=== PATIENT | male | born 1940 | race Caucasian/White ===

== ENCOUNTER 2017-08-25 02:39 | Inpatient (IN) | payer MEDICARE, BC ==
[~2017-08-25] VITALS: Ht 172.7 cm; Wt 86.6 kg
[2017-08-25] VITALS (16 sets, daily range): BP systolic 98–138; BP diastolic 54–86
[~2017-08-25 02:39] MED LIST: ALBU2.5V11 MC; ASPI-605 PO; BISA10SU61 RC; CLON2TAB PO; CLOP75TA2 PO; FURO-145 PO; GLIM1TAB2 PO; HYDR-3326 PO; INSU100V3 SQ; IPRA0.2S9 IH; KCL 10 MEQ PO; LEVO50TA PO; LISI-607 PO; MAGN400O6 PO; MELA3TAB42 PO; METO25TA20 PO; NA P133E RC; OMEP20CA10 PO; SERT25TA PO; TRAZ-147 PO; TYL2T PO; ZIPR60CA2 PO; ZOLP10TA2 PO
[2017-08-25] MEDS ORDERED: ALBUTEROL FS 2.5 MG/3 ML VIAL.NEB ONE (02:45)
--- NOTE | 2017-08-25 02:45 | NUR ---
PT RECIEVED FROM EMS WITH CPAP PLACED EN ROUTE WITH SOB. RT AT BEDSIDE WELL ASSESSING PATIENT. BREATH SOUNDS CRACKLE ON LEFT LOWER LUNG. VITALS STABLE OTHER THAN BREATH RATE BUT WILL BE PLACED ON BIPAP BY RT. WILL CONTINUE TO MONITOR THE PATIENT. 20G RIGHT HAND STARTED AND EMS STARTED 20G LEFT HAND.
[2017-08-25] MEDS ORDERED: ALBUTEROL FS 2.5 MG/3 ML VIAL.NEB CONTNEB ONE (03:00)
[2017-08-25] MEDS ORDERED: AZITHROMYCIN 500 MG in IV D5W 250 ML IV ONE (03:00)
[2017-08-25] MEDS ORDERED: methylPREDNISolone SOD SUCC 125 MG/2ML VIAL IV ONE (03:00)
--- NOTE | 2017-08-25 03:01 | NUR ---
RT PLACED PT ON BIPAP. EMS STARTED CPAP. HOSPITAL SETTING TO BIPAP. 26/01 FI02 40%
--- NOTE | 2017-08-25 03:02 | NUR ---
EMT AT BEDSIDE FOR EKG
--- NOTE | 2017-08-25 03:03 | NUR ---
PHLEB AT BEDSIDE FOR BLOOD DRAW
--- NOTE | 2017-08-25 03:03 | NUR ---
RADIOOLOGY TECH AT BEDSIDE FOR XRAY
[2017-08-25] MEDS ORDERED: methylPREDNISolone SOD SUCC 125 MG/2ML VIAL ONE (03:06)
[2017-08-25 03:28] LABS: ABG BASE EXCESS -4.8 mmol/L; ABG OXYGEN SATURATION 74.5 % (92.0-98.5); ABG PCO2 39.5 mmHg (35.0-45.0); ABG PH 7.335 (7.350-7.450); ABG PO2 44.2 mmHg (75.0-100.0); AaDO2 195.6 mmHg; COHb 0.5 % (0.5-1.5); MetHb 0.5 % (0.0-1.5); O2Hb 73.8 % (94.0-97.0); PEEP,BG 5 cm H2O; SITE, ABG Right Radial; VENT MODE, BG BIPAP
[2017-08-25 03:28] LABS: BASOPHILS % (AUTO) 0.5 % (0.0-2.0); EOSINOPHILS # (AUTO) 0.2 /CMM (0.0-0.7); EOSINOPHILS % (AUTO) 2.1 % (0.0-6.0); HEMATOCRIT 24 % (39-51); LYMPHOCYTES # (AUTO) 1.2 /CMM (0.8-4.8); LYMPHOCYTES % (AUTO) 15.5 % (20.0-44.0); MEAN CORPUSCULAR HEMOGLOBIN 26 PG (26.0-33.0); MEAN CORPUSCULAR HGB CONC 28 g/dl (31.0-36.0); MEAN CORPUSCULAR VOLUME 92 fL (80-96); MONOCYTES # (AUTO) 0.8 /CMM (0.1-1.30); MONOCYTES % (AUTO) 10.2 % (2.0-12.0); NEUTROPHILS # (AUTO) 5.6 /CMM (1.8-8.9); NEUTROPHILS % (AUTO) 71.7 % (43.0-81.0); PLATELET COUNT (AUTO) 152 /CMM (150-450); RDW COEFFICIENT OF VARIATION 13.8 (11.5-15.0); RED BLOOD CELL COUNT(AUTO) 2.61 MIL/uL (4.5-6.0); WHITE BLOOD COUNT (AUTO) 7.8 K/uL (4.3-11.0)
[2017-08-25] MEDS ORDERED: AZITHROMYCIN 500 MG VIAL ONE (03:36)
[2017-08-25 03:44] LABS: HEMOGLOBIN 6.8 g/dL (13.5-17.5)
[2017-08-25 03:49] LABS: ALANINE AMINOTRANSFERASE 36 U/L (12-78); ALBUMIN 3.6 g/dL (3.4-5.0); ALKALINE PHOSPHATASE 129 U/L (46-116); ASPARTATE AMINOTRANSFERASE 27 U/L (15-37); B-TYPE NATRIURETIC PEPTIDE 3942 PG/ML (0-125); BILIRUBIN,TOTAL 0.3 mg/dL (0.2-1.0); CALCIUM, SERUM 9.1 mg/dL (8.5-10.1); CARBON DIOXIDE 25 mmol/L (21-32); CHLORIDE 101 mmol/L (98-107); CREATININE 1.9 mg/dL (0.6-1.3); GLUCOSE 120 mg/dL (74-106); POTASSIUM 4.3 mmol/L (3.5-5.1); SODIUM SERUM 139 mmol/L (136-145); TOTAL PROTEIN, SERUM 7.1 g/dL (6.4-8.2); UREA NITROGEN, BLOOD 34 mg/dL (7-18)
--- NOTE | 2017-08-25 03:51 | NUR ---
ICU 251
[2017-08-25 04:07] LABS: EOSINOPHILS % (MANUAL) 3 % (0-4); LYMPHOCYTES % (MANUAL) 17 % (16-48); MONOCYTES % (MANUAL) 8 % (0-11.0); NEUTROPHILS % (MANUAL) 72 (42-76)
[2017-08-25] MEDS ORDERED: NITROGLYCERIN PACKET 1 GM PACKET ONE (04:24)
[2017-08-25] MEDS ORDERED: FUROSEMIDE 40 MG/4 ML VIAL ONE (04:24)
[2017-08-25] MEDS ORDERED: NITROGLYCERIN PACKET 1 GM PACKET TOP ONE (04:30)
[2017-08-25] MEDS ORDERED: FUROSEMIDE 40 MG/4 ML VIAL IV ONE (04:30)
[2017-08-25 04:33] LABS: INR 0.91 (0.87-1.13); PROTHROMBIN TIME 9.5 SECS (9.5-12.7)
--- NOTE | 2017-08-25 04:51 | NUR ---
GI TRIM MACHINE OPERATOR DR MCKEON PAGED
--- NOTE | 2017-08-25 05:00 | NUR ---
RN NOTES RECEIVED REPORT FROM HAMPER MAKERJERICHO MORENO
[2017-08-25] MEDS ORDERED: PANTOPRAZOLE 40 MG VIAL ONE (05:09)
--- NOTE | 2017-08-25 05:11 | NUR ---
REPORT GIVEN TO VERA IN ICU
[2017-08-25] MEDS ORDERED: PANTOPRAZOLE 80 MG in IV NS 0.9% 100 ML IV ONE (05:30)
[2017-08-25] MEDS ORDERED: PANTOPRAZOLE 80 MG in IV NS 0.9% 500 ML IV ONE (05:30)
--- NOTE | 2017-08-25 05:32 | NUR ---
PT TRANSPORTED TO ICU BED BY RN AND EMT ON BUSINESS APPLICATIONS SPECIALIST
--- NOTE | 2017-08-25 05:40 | NUR ---
RN NOTES PT BROUGHT IN FROM ER VIA GURNEY. A/O X3. ON 3L NASAL CANNULA, SATURATING WELL, WHEEZING NOTED BUT OTHERWISE NO S/S OF RESP DISTRESS. CURRENTLY SR ON THE MONITOR, HR 80'S, ALL OTHER VITALS WNL. LOWER ABDOMINAL REDNESS NOTED, OTHERWISE SKIN INTACT. PT IS CONTINENT AND ABLE TO VOID IN URINAL WITH ASSISTANCE. RIGHT HAND 20G AND LEFT HAND 20G WITH PROTONIX DRIP. BED LOW AND LOCKED, SIDERAILS UP, CALL LIGHT WITHIN REACH. WILL MONITOR
[2017-08-25] MEDS ORDERED: BISACODYL SUPP (10 MG) 10 MG/SUPP.RECT SUPP.RECT RC PRN (06:30)
[2017-08-25] MEDS ORDERED: Z GUARD REMEDY 2 OZ OINT TP PRN (06:30)
[2017-08-25] MEDS ORDERED: ONDANSETRON HCL/PF 4 MG/2 ML VIAL IVP PRN (06:30)
[2017-08-25] MEDS ORDERED: ACETAMINOPHEN 325 MG TABLET PO PRN ×2 (06:30)
[2017-08-25] MEDS ORDERED: ALBUTEROL FS 2.5 MG/3 ML VIAL.NEB NEB PRN ×2 (06:30)
[2017-08-25] MEDS ORDERED: IPRATROPIUM NEB FS 0.5 MG/2.5 ML AMPUL.NEB NEB PRN (06:30)
[2017-08-25 06:44] LABS: EOSINOPHILS % (AUTO) 0.2 % (0.0-6.0); HEMATOCRIT 34 % (39-51); HEMOGLOBIN 11.1 g/dL (13.5-17.5); LYMPHOCYTES # (AUTO) 1.4 /CMM (0.8-4.8); LYMPHOCYTES % (AUTO) 7.7 % (20.0-44.0); MEAN CORPUSCULAR HEMOGLOBIN 30 PG (26.0-33.0); MEAN CORPUSCULAR HGB CONC 33 g/dl (31.0-36.0); MEAN CORPUSCULAR VOLUME 90 fL (80-96); MONOCYTES # (AUTO) 0.2 /CMM (0.1-1.30); NEUTROPHILS # (AUTO) 15.9 /CMM (1.8-8.9); NEUTROPHILS % (AUTO) 91.1 % (43.0-81.0); PLATELET COUNT (AUTO) 242 /CMM (150-450); RDW COEFFICIENT OF VARIATION 13.8 (11.5-15.0); RED BLOOD CELL COUNT(AUTO) 3.71 MIL/uL (4.5-6.0); WHITE BLOOD COUNT (AUTO) 17.5 K/uL (4.3-11.0)
--- NOTE | 2017-08-25 06:50 | NUR ---
RN CLOSING NOTES PT REMAINS STABLE OF THE MOMENT. ALL DUE MEDS GIVEN, AM CARE PROVIDED. WILL ENDORSE DANIELA TO AM RN
[2017-08-25] MEDS ORDERED: PANTOPRAZOLE 40 MG TABLET.DR PO SCH (07:30)
[2017-08-25] MEDS: METOPROLOL TARTRATE 25 MG TABLET PO SCH ×2 (08:15→20:40)
[2017-08-25] MEDS: GLIMEPIRIDE 1 MG TABLET PO SCH ×2 (08:15→16:04)
[2017-08-25] MEDS: DOCUSATE SODIUM 100 MG CAPSULE PO SCH ×2 (08:15→16:05)
[2017-08-25] MEDS: LEVOTHYROXINE SODIUM 50 MCG TABLET PO SCH (08:17)
[2017-08-25] MEDS ORDERED: hydrALAZINE HCL 25 MG TABLET PO PRN (09:00)
[2017-08-25] MEDS ORDERED: LISINOPRIL (5MG) 5 MG TABLET PO SCH (09:00)
[2017-08-25] MEDS ORDERED: FUROSEMIDE 20 MG/2 ML VIAL IV ONE (09:00)
[2017-08-25] MEDS: SERTRALINE HCL 25 MG TABLET PO SCH (09:00)
[2017-08-25] MEDS: ZIPRASIDONE 20 MG CAPSULE PO SCH ×2 (09:00→16:05)
[2017-08-25] MEDS: clonazePAM 1 MG TABLET PO SCH ×2 (09:00→16:05)
[2017-08-25] MEDS ORDERED: PIPERACILLIN /TAZOBACTAM 4.5 G in IV D5W 50 ML IV SCH (09:00)
[2017-08-25] MEDS ORDERED: PIPERACILLIN /TAZOBACTAM 2.25 G in IV D5W 50 ML IV SCH (09:00)
[2017-08-25 09:04] LABS: ALBUMIN 3.6 g/dL (3.4-5.0); BILIRUBIN,DIRECT 0.1 mg/dL (0.0-0.2); BILIRUBIN,TOTAL 0.4 mg/dL (0.2-1.0)
[2017-08-25] MEDS: methylPREDNISolone SOD SUCC 125 MG/2ML VIAL IV SCH ×3 (09:50→16:05)
[2017-08-25 10:00] LABS: THYROID STIMULATING HORMONE 3.969 uIU/mL (0.358-3.74)
[2017-08-25 10:01] LABS: MAGNESIUM 2.3 mg/dL (1.8-2.4); PHOSPHORUS 4.4 mg/dL (2.5-4.9); THYROID STIMULATING HORMONE 3.969 uIU/mL (0.358-3.74)
[2017-08-25] MEDS ORDERED: POTASSIUM CHLORIDE 20 MEQ TAB.PRT.SR PO ONE (10:30)
[2017-08-25] MEDS: LISINOPRIL (10MG) 10 MG TABLET PO SCH (11:11)
[2017-08-25] MEDS: FUROSEMIDE 40 MG/4 ML VIAL IV SCH ×3 (11:11→18:04)
--- NOTE | 2017-08-25 11:28 | NUR ---
LIFT TEAM TECHNICIAN NOTE 0720: Received patient awake, A/Ox4. On 3LPM of O2 via NC tolerated well. No respiratory distress noted. No c/o any discomfort at this time. Able to use urinals with assistance. 2PIVs intact. 0800: Able to tolerate diet. Not3ed with 420mL of clear yellow urine. 0830: Held Geodon, Zoloft and Klonopin for episode of respiratory failure, will keep patient awake as possible for now. Patient aware for skipping dose and agreed. Placed patient on condom cath for having diuretics, patient agreed. Encouraged to minimize taking PO fluids. 0845: S/E by Dr. Powell, with order to increase Lisinopril and Lasix, and may transfer to Tele. Made CN aware. 0930: Spoke with Dr. Marie via phone and given update about the patient. Repeat H/H 11.1 and 34, no active bleeding, said to get consent for EGD for tomorrow and NPO post midnight and also said to continue holding anticoags. Made patient aware for the EGD order and signed consent. 1000: S/E by Dr. Hickman, with order for repeat CXR in am. 1120: No any significant changes noted at this time. Kept clean, warm and dry. Needs attended.
[2017-08-25] MEDS: ALBUTEROL FS 2.5 MG/3 ML VIAL.NEB NEB SCH ×4 (11:30→23:36)
[2017-08-25] MEDS: IPRATROPIUM NEB FS 0.5 MG/2.5 ML AMPUL.NEB NEB SCH ×4 (11:30→23:36)
[2017-08-25 11:57] LABS: CALCIUM, SERUM 8.7 mg/dL (8.5-10.1); CARBON DIOXIDE 25 mmol/L (21-32); CHLORIDE 99 mmol/L (98-107); CREATININE 1.8 mg/dL (0.6-1.3); GLUCOSE 204 mg/dL (74-106); POTASSIUM 3.9 mmol/L (3.5-5.1); SODIUM SERUM 137 mmol/L (136-145); UREA NITROGEN, BLOOD 31 mg/dL (7-18)
[2017-08-25 12:06] LABS: TROPONIN I 0.204 ng/mL (0.00-0.056)
[2017-08-25 12:10] LABS: BASOPHILS % (AUTO) 0.2 % (0.0-2.0); HEMATOCRIT 31 % (39-51); HEMOGLOBIN 10.4 g/dL (13.5-17.5); LYMPHOCYTES # (AUTO) 1.4 /CMM (0.8-4.8); LYMPHOCYTES % (AUTO) 15.6 % (20.0-44.0); MEAN CORPUSCULAR HEMOGLOBIN 30 PG (26.0-33.0); MEAN CORPUSCULAR HGB CONC 34 g/dl (31.0-36.0); MEAN CORPUSCULAR VOLUME 89 fL (80-96); MONOCYTES # (AUTO) 0.2 /CMM (0.1-1.30); MONOCYTES % (AUTO) 2.4 % (2.0-12.0); NEUTROPHILS # (AUTO) 7.3 /CMM (1.8-8.9); NEUTROPHILS % (AUTO) 81.8 % (43.0-81.0); PLATELET COUNT (AUTO) 251 /CMM (150-450); RDW COEFFICIENT OF VARIATION 13.7 (11.5-15.0); RED BLOOD CELL COUNT(AUTO) 3.44 MIL/uL (4.5-6.0)
[2017-08-25] MEDS: PIPERACILLIN /TAZOBACTAM 2.25 G in IV D5W 50 ML IV SCH ×3 (12:22→23:28)
[2017-08-25] MEDS ORDERED: IBUPROFEN 400 MG TABLET PO PRN (15:00)
--- NOTE | 2017-08-25 18:20 | NUR ---
PATIENT SERVICE REPRESENTATIVE NOTE No any significant changes. Able to void on the urinals, unfortunately, he was not successful on using on the last voiding, noted with wet diapers. with large amount of urine. Encouraged to call if needed help on voiding. Tried condom cath but dislodged x3 and refused Slade cath. Continue Lasix and Solumedrol. Remained on 2LPM of O2 via NC tolerated well. Kept clean, warm and dry. Needs attended. Able to tolerate Geodon and Zoloft for pm dose. PIVs intact. Will endorse.
--- NOTE | 2017-08-25 19:20 | NUR ---
ANALYTICS LEAD OPENING NOTES RECEIVED PATIENT AND REPORT FROM DAY SHIFT. PATIENT IS IN BED WITH HOB ELEVATED AT 30 DEGREES. SLEEPING BUT IS EASILY AROUSED WITH VERBAL STIMULUS. ALERT AND ORIENTED X 3. ABLE TO EXPRESS NEEDS. ON OXYGEN VIA NC RUNNING AT 2LPM. CALL LIGHT WITHIN REACH.
[2017-08-25] MEDS: HYDROCODONE/APAP 5/325MG 1 EACH TABLET PO PRN (20:41)
[2017-08-25] MEDS: PANTOPRAZOLE 40 MG VIAL IV SCH (20:42)
[2017-08-25] MEDS: TRAZODONE 50 MG TABLET PO SCH (21:11)
[2017-08-25] MEDS ORDERED: ZOLPIDEM TARTRATE 10 MG TABLET PO PRN (22:00)
[2017-08-25 23:37] LABS: APPEARANCE,URINE CLEAR (CLEAR); BILIRUBIN,URINE NEGATIVE (NEGATIVE); BLOOD, URINE NEGATIVE Ery/uL (NEGATIVE); COLOR,URINE YELLOW (YELLOW); KETONES,URINE NEGATIVE (NEGATIVE); LEUKOCYTE ESTERASE ,URINE NEGATIVE (NEGATIVE); NITRITE, URINE NEGATIVE (NEGATIVE); PROTEIN,URINE NEGATIVE (NEGATIVE); UGLUCOSE NEGATIVE (NEGATIVE); UROBILINOGEN,URINE 0.2 EU/dL (0.2)
[2017-08-25 23:40] LABS: CREATININE, URINE 16.2 MG/DL (30.0-125.0); URINE SODIUM, RANDOM 74 mmol/l (40-220)
[2017-08-25 23:41] LABS: URINE TOTAL PROTEIN < 6.0 mg/dL (0-11.9)
[2017-08-26] VITALS (7 sets, daily range): BP systolic 93–141; BP diastolic 40–95
[2017-08-26 00:42] LABS: EOSINOPHIL,URINE None Seen
[2017-08-26] MEDS: IPRATROPIUM NEB FS 0.5 MG/2.5 ML AMPUL.NEB NEB SCH ×6 (02:55→23:47)
[2017-08-26] MEDS: ALBUTEROL FS 2.5 MG/3 ML VIAL.NEB NEB SCH ×6 (02:55→23:47)
[2017-08-26] MEDS: PIPERACILLIN /TAZOBACTAM 2.25 G in IV D5W 50 ML IV SCH ×2 (05:19→12:56)
[2017-08-26 06:54] LABS: BASOPHILS % (AUTO) 0.1 % (0.0-2.0); HEMATOCRIT 30 % (39-51); HEMOGLOBIN 9.7 g/dL (13.5-17.5); LYMPHOCYTES # (AUTO) 1.7 /CMM (0.8-4.8); LYMPHOCYTES % (AUTO) 10.4 % (20.0-44.0); MEAN CORPUSCULAR HEMOGLOBIN 30 PG (26.0-33.0); MEAN CORPUSCULAR HGB CONC 33 g/dl (31.0-36.0); MEAN CORPUSCULAR VOLUME 91 fL (80-96); MONOCYTES % (AUTO) 12.4 % (2.0-12.0); NEUTROPHILS # (AUTO) 12.5 /CMM (1.8-8.9); NEUTROPHILS % (AUTO) 77.1 % (43.0-81.0); PLATELET COUNT (AUTO) 238 /CMM (150-450); RDW COEFFICIENT OF VARIATION 13.8 (11.5-15.0); RED BLOOD CELL COUNT(AUTO) 3.29 MIL/uL (4.5-6.0); WHITE BLOOD COUNT (AUTO) 16.2 K/uL (4.3-11.0)
[2017-08-26 06:57] LABS: ALANINE AMINOTRANSFERASE 25 U/L (12-78); ALBUMIN 2.9 g/dL (3.4-5.0); ALKALINE PHOSPHATASE 86 U/L (46-116); ASPARTATE AMINOTRANSFERASE 17 U/L (15-37); BILIRUBIN,TOTAL 0.2 mg/dL (0.2-1.0); CALCIUM, SERUM 8.4 mg/dL (8.5-10.1); CARBON DIOXIDE 27 mmol/L (21-32); CHLORIDE 100 mmol/L (98-107); CREATININE 1.8 mg/dL (0.6-1.3); GLUCOSE 153 mg/dL (74-106); MAGNESIUM 2.1 mg/dL (1.8-2.4); PHOSPHORUS 4.7 mg/dL (2.5-4.9); POTASSIUM 3.6 mmol/L (3.5-5.1); SODIUM SERUM 137 mmol/L (136-145); TOTAL PROTEIN, SERUM 5.9 g/dL (6.4-8.2); TROPONIN I 0.159 ng/mL (0.00-0.056); UREA NITROGEN, BLOOD 41 mg/dL (7-18)
[2017-08-26 07:36] LABS: CREATINE KINASE, TOTAL 491 U/L (39-308)
[2017-08-26] MEDS ORDERED: ANESTHESIA TRAY IN PYXIS 1 EA TRAY MC ONE (07:46)
[2017-08-26 08:05] LABS: CREATINE KINASE MB 1.8 ng/mL (0-3.6)
--- NOTE | 2017-08-26 08:30 | NUR ---
RN NOTE PT CAME BACK FROM OR FROM EGD, TOLERATED WELL, DENIES PAIN, CO HUNGER, NO NAUSEA, NO SOB. ON NC 2 2 L/MIN. WILL MONITOR PT CLOSELY. CALL LIGHT WITHIN REACH.
[2017-08-26] MEDS: methylPREDNISolone SOD SUCC 125 MG/2ML VIAL IV SCH (08:51)
[2017-08-26] MEDS: PANTOPRAZOLE 40 MG VIAL IV SCH (08:51)
[2017-08-26] MEDS: GLIMEPIRIDE 1 MG TABLET PO SCH ×2 (08:51→17:22)
[2017-08-26] MEDS: LEVOTHYROXINE SODIUM 50 MCG TABLET PO SCH (08:51)
[2017-08-26] MEDS: SERTRALINE HCL 25 MG TABLET PO SCH (08:51)
[2017-08-26] MEDS: DOCUSATE SODIUM 100 MG CAPSULE PO SCH ×2 (08:51→17:20)
[2017-08-26] MEDS: clonazePAM 1 MG TABLET PO SCH ×2 (08:54→17:22)
[2017-08-26] MEDS: LISINOPRIL (10MG) 10 MG TABLET PO SCH (09:00)
[2017-08-26] MEDS: METOPROLOL TARTRATE 25 MG TABLET PO SCH ×2 (09:00→21:49)
[2017-08-26] MEDS: ZIPRASIDONE 20 MG CAPSULE PO SCH ×2 (10:00→17:22)
[2017-08-26] MEDS: METOCLOPRAMIDE HCL 10 MG TABLET PO SCH ×3 (12:56→23:39)
[2017-08-26] MEDS: FUROSEMIDE 100 MG/10 ML VIAL IV SCH ×3 (12:56→21:49)
[2017-08-26] MEDS: HYDROCODONE/APAP 5/325MG 1 EACH TABLET PO PRN (14:04)
[2017-08-26] MEDS ORDERED: POLYETHYLENE GLYCOL 3350 17 GM POWD.PACK PO PRN (14:30)
[2017-08-26] MEDS: POLYETHYLENE GLYCOL 3350 17 GM POWD.PACK PO SCH (15:18)
[2017-08-26] MEDS: LEVOFLOXACIN (500MG) 500 MG TABLET PO SCH (15:43)
--- NOTE | 2017-08-26 19:30 | NUR ---
CELL ATTENDANT INITIAL NOTE PT RECEIVED SLEEPING IN BED BUT EASILY AROUSABLE. A/O X3 AND ABLE TO MAKE NEEDS KNOWN. ON 2L OF O2 AND SATURATING WELL. BREATHING REGULAR AND UNLABORED. TELE- SINUS RHYTHM WITH OCCASIONAL PVC/PAC. IV L & R HAND #20 CLEAN, DRY, PATENT AND FLUSHING WELL. INFORMED PT TO REMAIN NPO AFTER MIDNIGHT FOR PROCEDURE IN THE MORNING. PT VERBALIZED UNDERSTANDING. CALL LIGHT WITHIN REACH. WILL CONTINUE TO MONITOR.
[2017-08-26] MEDS: SENNOSIDES 8.6 MG TABLET PO SCH (21:49)
[2017-08-26] MEDS: TRAZODONE 50 MG TABLET PO SCH (23:39)
[2017-08-27] VITALS: BP 108/70
[2017-08-27] MEDS: ALBUTEROL FS 2.5 MG/3 ML VIAL.NEB NEB SCH ×6 (03:30→23:30)
[2017-08-27] MEDS: IPRATROPIUM NEB FS 0.5 MG/2.5 ML AMPUL.NEB NEB SCH ×6 (03:30→23:30)
[2017-08-27 04:00] VITALS: BP 110/64
[2017-08-27] MEDS: METOCLOPRAMIDE HCL 10 MG TABLET PO SCH ×3 (05:36→17:00)
--- NOTE | 2017-08-27 06:58 | NUR ---
SQL DATA ANALYST CLOSING NOTE PT REMAINED STABLE DURING SHIFT. NO ACUTE DISTRESS NOTED. ALL NEEDS ATTENDED TO PROMPTLY. KEPT CLEAN AND DRY. NPO STATUS MAINTAINED FOR PROCEDURE THIS MORNING. ALL SAFETY MEASURES IN PLACE. CALL LIGHT WITHIN REACH. WILL ENDORSE TO NEXT SHIFT FOR CONTINUITY OF CARE.
[2017-08-27 07:53] LABS: BASOPHILS % (AUTO) 0.1 % (0.0-2.0); EOSINOPHILS # (AUTO) 0.1 /CMM (0.0-0.7); EOSINOPHILS % (AUTO) 0.9 % (0.0-6.0); HEMATOCRIT 31 % (39-51); HEMOGLOBIN 10.4 g/dL (13.5-17.5); LYMPHOCYTES # (AUTO) 2.8 /CMM (0.8-4.8); LYMPHOCYTES % (AUTO) 17.1 % (20.0-44.0); MEAN CORPUSCULAR HEMOGLOBIN 31 PG (26.0-33.0); MEAN CORPUSCULAR HGB CONC 34 g/dl (31.0-36.0); MEAN CORPUSCULAR VOLUME 91 fL (80-96); MONOCYTES # (AUTO) 2.6 /CMM (0.1-1.30); MONOCYTES % (AUTO) 16.1 % (2.0-12.0); NEUTROPHILS # (AUTO) 10.6 /CMM (1.8-8.9); NEUTROPHILS % (AUTO) 65.8 % (43.0-81.0); PLATELET COUNT (AUTO) 248 /CMM (150-450); RDW COEFFICIENT OF VARIATION 14.2 (11.5-15.0); WHITE BLOOD COUNT (AUTO) 16.1 K/uL (4.3-11.0)
[2017-08-27 08:00] VITALS: BP 122/61
[2017-08-27] MEDS ORDERED: REGADENOSON 0.4 MG/5 ML DISP.SYRIN IVP ONE (08:00)
--- NOTE | 2017-08-27 08:00 | NUR ---
teletype telegrapher note patient in bed , resting comfortably in bed , all needs attended on 2l nc on npo at This time for stress test , on tele monitor sr 85 , lt hand and rt hand hl intact bed in lowest and locked position , not in distress, will cont to monitor closely
[2017-08-27 08:12] LABS: CALCIUM, SERUM 8.4 mg/dL (8.5-10.1); CARBON DIOXIDE 30 mmol/L (21-32); CHLORIDE 100 mmol/L (98-107); CREATININE 1.9 mg/dL (0.6-1.3); GLUCOSE 74 mg/dL (74-106); MAGNESIUM 2.5 mg/dL (1.8-2.4); PHOSPHORUS 5.2 mg/dL (2.5-4.9); POTASSIUM 3.5 mmol/L (3.5-5.1); SODIUM SERUM 136 mmol/L (136-145); UREA NITROGEN, BLOOD 54 mg/dL (7-18)
--- NOTE | 2017-08-27 08:15 | NUR ---
INSTALLATION DRAFTER NOTE TAKEN TO STRESS TEST ORDERED
[2017-08-27] MEDS ORDERED: methylPREDNISolone SOD SUCC 125 MG/2ML VIAL IV SCH (09:00)
[2017-08-27 09:24] LABS: LYMPHOCYTES % (MANUAL) 18 % (16-48); MONOCYTES % (MANUAL) 14 % (0-11.0); NEUTROPHILS % (MANUAL) 68 (42-76)
[2017-08-27] MEDS: LISINOPRIL (5MG) 5 MG TABLET PO SCH (10:17)
[2017-08-27] MEDS: METOPROLOL TARTRATE 25 MG TABLET PO SCH ×2 (10:19→21:00)
[2017-08-27] MEDS: predniSONE 20 MG TABLET PO SCH (10:20)
[2017-08-27] MEDS: PANTOPRAZOLE 40 MG TABLET.DR PO SCH (10:20)
[2017-08-27] MEDS: DOCUSATE SODIUM 100 MG CAPSULE PO SCH ×2 (10:21→16:54)
[2017-08-27] MEDS: SERTRALINE HCL 25 MG TABLET PO SCH (10:21)
[2017-08-27] MEDS: ZIPRASIDONE 20 MG CAPSULE PO SCH ×2 (10:22→16:58)
[2017-08-27] MEDS: ASPIRIN 81 MG TAB.CHEW PO SCH (10:22)
[2017-08-27] MEDS: clonazePAM 1 MG TABLET PO SCH ×2 (10:23→16:59)
[2017-08-27] MEDS: GLIMEPIRIDE 1 MG TABLET PO SCH ×2 (10:23→16:54)
[2017-08-27] MEDS: POLYETHYLENE GLYCOL 3350 17 GM POWD.PACK PO SCH (10:24)
[2017-08-27] MEDS: LEVOTHYROXINE SODIUM 50 MCG TABLET PO SCH (10:26)
[2017-08-27 12:00] VITALS: BP 110/71
[2017-08-27] MEDS: POTASSIUM CHLORIDE 20 MEQ TAB.PRT.SR PO SCH ×2 (12:48→14:52)
[2017-08-27] MEDS: FUROSEMIDE 100 MG/10 ML VIAL IV SCH ×3 (12:48→18:51)
--- NOTE | 2017-08-27 13:28 | NUR ---
ARTIFICIAL FLOWERS SUPERVISOR NOTE UP ON KIRT ,TOLERATED WELL,WILL CONT TO MONITOR CLOSELY
[2017-08-27 13:46] LABS: PTH, INTACT 73 pg/mL (15-65)
[2017-08-27 13:48] LABS: ABG BASE EXCESS 0.1 mmol/L; ABG OXYGEN SATURATION 91.5 % (92.0-98.5); ABG PCO2 39.1 mmHg (35.0-45.0); ABG PH 7.416 (7.350-7.450); ABG PO2 65.8 mmHg (75.0-100.0); AaDO2 37.1 mmHg; COHb 0.3 % (0.5-1.5); MetHb 0.8 % (0.0-1.5); O2Hb 90.5 % (94.0-97.0); SITE, ABG Right Radial; VENT MODE, BG ROOM AIR
--- NOTE | 2017-08-27 14:42 | NUR ---
EDITORIAL ASSISTANT NOTE ABG RESULT REPORTED TO DR GAMBOA NO NEW ORDER GIVEN
--- NOTE | 2017-08-27 14:59 | NUR ---
TEAM SUPERVISOR NOTE AMBULATE IN HALLWAY WITH ASSISTANCE USING A WALKER ABLE TO SIT IN CHAIR , WILL MONITOR CLOSELY
--- NOTE | 2017-08-27 15:32 | NUR ---
KIKI ECHAVARRIA NOTE DR LLANES AT BEDSIDE AWARE THAT PATIENT FEEL VERY TIRED AFTER STRESS TEST , [place] [facility] AWARE THAT PATIENT WAS AMBULATED EARLIER WITH ASSISTANCE Addendum: 08/27/17 at 1559 by YAIR CARDENAS RN PER DR SHRADDHA BEAUCHAMP PSYCH EVAL PATENT TAKING SEVERE PSYCH MEDS ,NO PSYCH HISTO
[2017-08-27 16:00] VITALS: BP 120/64
[2017-08-27] MEDS ORDERED: FLU VACC QS 2017-18(36MOS+)/PF 0.5 ML DISP.SYRIN IM ONE (16:00)
--- NOTE | 2017-08-27 18:56 | NUR ---
MS RN NOTE ABLE TO FEED SELF , ALL NEEDS ATTENDED ,NOT IN ACUTE DISTRESS ,NO SOB NOTED, WILL CONT TO MONITOR CLOSELY
[2017-08-27 20:00] VITALS: BP 98/56
--- NOTE | 2017-08-27 20:04 | NUR ---
MS RN INITIAL NOTE PT RECEIVED SLEEPING IN BED BUT EASILY AROUSABLE. A/O X3 AND ABLE TO MAKE NEEDS KNOWN. ON 2L OF O2 AND SATURATING WELL. BREATHING REGULAR AND UNLABORED. IV L & R HAND #20 CLEAN, DRY, PATENT AND FLUSHING WELL. S/P STRESS TEST, APPEARS COMFORTABLE. ALL NEEDS MET. CALL LIGHT WITHIN REACH. WILL CONTINUE TO MONITOR.
[2017-08-27] MEDS: SENNOSIDES 8.6 MG TABLET PO SCH (22:00)
[2017-08-27] MEDS: TRAZODONE 50 MG TABLET PO SCH (22:01)
[2017-08-28] MEDS: METOCLOPRAMIDE HCL 10 MG TABLET PO SCH ×4 (00:22→16:29)
[2017-08-28] MEDS: IPRATROPIUM NEB FS 0.5 MG/2.5 ML AMPUL.NEB NEB SCH ×5 (03:30→19:43)
[2017-08-28] MEDS: ALBUTEROL FS 2.5 MG/3 ML VIAL.NEB NEB SCH ×5 (03:30→19:43)
[2017-08-28 04:00] VITALS: BP_SYST 110; BP_SYST 115; BP_DIAS 60; BP_DIAS 64
[2017-08-28 06:04] LABS: *SPE A/G RATIO 1.3 (0.7-1.7); *SPE ALPHA-1-GLOBULIN 0.2 g/dL (0.0-0.4); *SPE ALPHA-2-GLOBULIN 0.8 g/dL (0.4-1.0); *SPE BETA GLOBULIN 0.8 g/dL (0.7-1.3); *SPE GLOBULIN, TOTAL 2.3 g/dL (2.2-3.9); *SPE M-SPIKE Not Observed g/dL (Not Observed); *SPEGAMMA GLOBULIN 0.5 g/dL (0.4-1.8)
--- NOTE | 2017-08-28 06:13 | NUR ---
MS RN CLOSING NOTE PT ENDORSED SLEEPING IN BED BUT EASILY AROUSABLE. A/O X3 AND ABLE TO MAKE NEEDS KNOWN. ON 2L OF O2 AND SATURATING WELL. BREATHING REGULAR AND UNLABORED. IV L & R HAND #20 CLEAN, DRY, PATENT AND FLUSHING WELL. S/P STRESS TEST, WITH EF 29%, XR CHEST DONE IN AM, WILL ENDORSE TO AM SHIFT TO F/U. APPEARS COMFORTABLE. ALL NEEDS MET. CALL LIGHT WITHIN REACH. WILL CONTINUE TO MONITOR.
[2017-08-28 07:44] LABS: BASOPHILS % (AUTO) 0.2 % (0.0-2.0); EOSINOPHILS # (AUTO) 0.3 /CMM (0.0-0.7); EOSINOPHILS % (AUTO) 2.3 % (0.0-6.0); HEMATOCRIT 33 % (39-51); LYMPHOCYTES # (AUTO) 2.5 /CMM (0.8-4.8); LYMPHOCYTES % (AUTO) 17.3 % (20.0-44.0); MEAN CORPUSCULAR HEMOGLOBIN 31 PG (26.0-33.0); MEAN CORPUSCULAR HGB CONC 34 g/dl (31.0-36.0); MEAN CORPUSCULAR VOLUME 91 fL (80-96); MONOCYTES # (AUTO) 2.3 /CMM (0.1-1.30); MONOCYTES % (AUTO) 15.8 % (2.0-12.0); NEUTROPHILS # (AUTO) 9.3 /CMM (1.8-8.9); NEUTROPHILS % (AUTO) 64.4 % (43.0-81.0); PLATELET COUNT (AUTO) 256 /CMM (150-450); RDW COEFFICIENT OF VARIATION 14.2 (11.5-15.0); RED BLOOD CELL COUNT(AUTO) 3.59 MIL/uL (4.5-6.0); WHITE BLOOD COUNT (AUTO) 14.4 K/uL (4.3-11.0)
[2017-08-28 08:00] VITALS: BP 127/57
[2017-08-28 08:12] LABS: ALANINE AMINOTRANSFERASE 27 U/L (12-78); ALKALINE PHOSPHATASE 95 U/L (46-116); ASPARTATE AMINOTRANSFERASE 13 U/L (15-37); BILIRUBIN,TOTAL 0.2 mg/dL (0.2-1.0); CALCIUM, SERUM 8.5 mg/dL (8.5-10.1); CARBON DIOXIDE 30 mmol/L (21-32); CHLORIDE 101 mmol/L (98-107); CREATININE 1.6 mg/dL (0.6-1.3); GLUCOSE 92 mg/dL (74-106); MAGNESIUM 2.5 mg/dL (1.8-2.4); PHOSPHORUS 3.9 mg/dL (2.5-4.9); POTASSIUM 3.7 mmol/L (3.5-5.1); SODIUM SERUM 138 mmol/L (136-145); TOTAL PROTEIN, SERUM 6.2 g/dL (6.4-8.2); UREA NITROGEN, BLOOD 52 mg/dL (7-18)
[2017-08-28] MEDS: LISINOPRIL (5MG) 5 MG TABLET PO SCH (08:40)
[2017-08-28] MEDS: DOCUSATE SODIUM 100 MG CAPSULE PO SCH ×2 (08:40→16:29)
[2017-08-28] MEDS: POLYETHYLENE GLYCOL 3350 17 GM POWD.PACK PO SCH (08:41)
[2017-08-28] MEDS: SERTRALINE HCL 25 MG TABLET PO SCH (08:41)
[2017-08-28] MEDS: clonazePAM 1 MG TABLET PO SCH (08:41)
[2017-08-28] MEDS: METOPROLOL TARTRATE 25 MG TABLET PO SCH (08:41)
[2017-08-28] MEDS: ASPIRIN 81 MG TAB.CHEW PO SCH (08:41)
[2017-08-28] MEDS: LEVOTHYROXINE SODIUM 50 MCG TABLET PO SCH (08:41)
[2017-08-28] MEDS: PANTOPRAZOLE 40 MG TABLET.DR PO SCH (08:41)
[2017-08-28] MEDS: predniSONE 20 MG TABLET PO SCH (08:41)
[2017-08-28] MEDS: ZIPRASIDONE 20 MG CAPSULE PO SCH ×2 (08:41→16:29)
[2017-08-28] MEDS: GLIMEPIRIDE 1 MG TABLET PO SCH ×2 (08:42→16:29)
[2017-08-28] MEDS: POTASSIUM CHLORIDE 20 MEQ TAB.PRT.SR PO SCH ×3 (10:26→12:51)
[2017-08-28] MEDS: FUROSEMIDE 40 MG/4 ML VIAL IV SCH ×3 (10:27→16:29)
--- NOTE | 2017-08-28 10:30 | NUR ---
RN ANIL PATIENT ROOM AIR O2 SAT NOTED TO BE 95% - 97%. NO ACUTE DISTRESS. PATIENT IS ASLEEP AT THIS TIME. PATIENT REFUSED TO GET OUT OF BED AT THIS TIME. PATIENT SAID HE IS TOO WEAK TO GET OUT OF BED AT THIS TIME. WILL ATTEMPT LATER.
[2017-08-28 12:00] VITALS: BP 127/57
[2017-08-28] MEDS: LEVOFLOXACIN (500MG) 500 MG TABLET PO SCH (15:42)
[2017-08-28] MEDS ORDERED: clonazePAM 1 MG TABLET PO PRN (17:00)
--- NOTE | 2017-08-28 20:00 | NUR ---
ms rn notes received pts on bed awake alert and verbally responsive able to make needs known.v/s stable afebrile, no sob no distress no c/o of pain at this time , pts for discharged today to [facility] [place], report given by eduin hinton to eduin pratt in [facility], all needs attended too , discharged medication instruction and teachings given to pts with understanding .awaiting for transportation.all needs attended to call light within reach , kept pts clean dry and comfortable.care rendered .
--- NOTE | 2017-08-28 21:05 | NUR ---
ms rn notes ambulnz transport came , v/s bp 120/70 pr -68 rr=16 t=97.7 o2 sat =100% pts in stable condition ,all belongings given to pts (wallet and 2 keys,clothing)pts looking for his shoes but its not on the list, explain to pts verbalized understanding,charged nurse miah made aware.report given to the ambulanz crew, hl removed .pts left [facility] at 830pm via gurney in stable condition.
[2017-08-29] MEDS ORDERED: clonazePAM 1 MG TABLET PO SCH (09:00)
== END 2017-08-28 20:30 | DRG 280 ==
LOC: ER 02:40 → ICU 04:53 → TELE1 18:38 → MEDSG1 08-27 12:18
PROVIDERS: ADMIT Internal Medicine; ATTEND Internal Medicine
PROC: 0DB68ZX Excision of Stomach, Via Natural or Artificial Opening Endoscopic, Diagnostic (ICD-10-PCS; principal; 2017-08-26 08:01)
DX: I13.0 Hypertensive heart and chronic kidney disease with heart failure and stage 1 through stage 4 chronic kidney disease, or unspecified chronic kidney disease (principal); I50.33 Acute on chronic diastolic (congestive) heart failure; I21.A1 Myocardial infarction type 2; J96.01 Acute respiratory failure with hypoxia; N17.0 Acute kidney failure with tubular necrosis; E44.0 Moderate protein-calorie malnutrition; E87.2 Acidosis; K31.84 Gastroparesis; J18.9 Pneumonia, unspecified organism; E11.43 Type 2 diabetes mellitus with diabetic autonomic (poly)neuropathy; E11.22 Type 2 diabetes mellitus with diabetic chronic kidney disease; M62.82 Rhabdomyolysis; J44.0 Chronic obstructive pulmonary disease with (acute) lower respiratory infection; J44.1 Chronic obstructive pulmonary disease with (acute) exacerbation; K92.2 Gastrointestinal hemorrhage, unspecified; J98.11 Atelectasis; K29.70 Gastritis, unspecified, without bleeding; N18.3 Chronic kidney disease, stage 3 (moderate); E88.09 Other disorders of plasma-protein metabolism, not elsewhere classified; D63.8 Anemia in other chronic diseases classified elsewhere; E03.9 Hypothyroidism, unspecified; E66.9 Obesity, unspecified; E78.5 Hyperlipidemia, unspecified; E87.6 Hypokalemia; I25.10 Atherosclerotic heart disease of native coronary artery without angina pectoris; Z79.899 Other long term (current) drug therapy; Z98.61 Coronary angioplasty status; K21.9 Gastro-esophageal reflux disease without esophagitis; Z79.4 Long term (current) use of insulin; J20.9 Acute bronchitis, unspecified; I34.0 Nonrheumatic mitral (valve) insufficiency; G47.33 Obstructive sleep apnea (adult) (pediatric); Z68.29 Body mass index [BMI] 29.0-29.9, adult; Z88.2 Allergy status to sulfonamides; F41.0 Panic disorder [episodic paroxysmal anxiety]; F44.9 Dissociative and conversion disorder, unspecified; D50.0 Iron deficiency anemia secondary to blood loss (chronic); I42.9 Cardiomyopathy, unspecified
CPT/HCPCS: 36415; 36600; 71010-TC; 76770-TC; 80048-TC; 80053-TC; 80076-TC; 81000-TC; 82272-TC; 82306; 82550-TC; 82553-TC; 82570-TC; 82803-TC; 82962-TC; 83540-TC; 83605-TC; 83735-TC; 83880; 83970; 84100-TC; 84155; 84155-TC; 84165; 84300-TC; 84439-TC; 84443-TC; 84484-TC; 85025-TC; 85378-TC; 85730-TC; 86850-TC; 86921-TC; 87040-TC; 87081-TC; 87400; 88305-TC; 88313-TC; 88342; 93307-TC; 93970-TC; 94799-TC; A4349; A4565; A4606; A9502; C9113; J0456; J1940; J2001; J2543; J2704; J2785; J2930; J7030; J7060; J8597; Q2036; Z7610

== ENCOUNTER 2017-10-19 12:08 | Inpatient (IN) | payer MEDICARE, BC ==
[~2017-10-19] VITALS: Ht 170.2 cm; Wt 84.4 kg
[2017-10-19] VITALS (13 sets, daily range): BP systolic 94–142; BP diastolic 54–88
[~2017-10-19 12:08] MED LIST changes: -ALBU2.5V11 MC; +ALBU2.5V11 NEB; +CLOP75TA15 PO; -CLOP75TA2 PO; -HYDR-3326 PO; +HYDR-3974 PO; -MELA3TAB42 PO; +MELA3TAB70 PO
[2017-10-19] MEDS ORDERED: FUROSEMIDE 20 MG/2 ML VIAL ONE (12:20)
--- NOTE | 2017-10-19 12:20 | NUR ---
Tammy from SNF due SOPB. Patient received awake and laert, appears in mild distress. Patient was placed on o2 via non rebreather, sating 98%. Skin is warm to touch and non diaphporetic. Patient is afebrile. vss. Iv accessed to left hand noted/
[2017-10-19 12:28] LABS: BASOPHILS # (AUTO) 0.2 /CMM (0.0-0.2); BASOPHILS % (AUTO) 1.6 % (0.0-2.0); EOSINOPHILS % (AUTO) 0.2 % (0.0-6.0); HEMATOCRIT 32 % (39-51); HEMOGLOBIN 10.8 g/dL (13.5-17.5); LYMPHOCYTES % (AUTO) 6.9 % (20.0-44.0); MEAN CORPUSCULAR HEMOGLOBIN 29 PG (26.0-33.0); MEAN CORPUSCULAR HGB CONC 34 g/dl (31.0-36.0); MEAN CORPUSCULAR VOLUME 85 fL (80-96); MONOCYTES # (AUTO) 0.2 /CMM (0.1-1.30); MONOCYTES % (AUTO) 1.6 % (2.0-12.0); NEUTROPHILS # (AUTO) 12.9 /CMM (1.8-8.9); NEUTROPHILS % (AUTO) 89.7 % (43.0-81.0); PLATELET COUNT (AUTO) 217 /CMM (150-450); RDW COEFFICIENT OF VARIATION 13.7 (11.5-15.0); RED BLOOD CELL COUNT(AUTO) 3.76 MIL/uL (4.5-6.0); WHITE BLOOD COUNT (AUTO) 14.3 K/uL (4.3-11.0)
--- NOTE | 2017-10-19 12:29 | NUR ---
due mediation given as ordered
[2017-10-19] MEDS ORDERED: FUROSEMIDE 40 MG/4 ML VIAL IV ONE (12:30)
[2017-10-19 12:38] LABS: CALCIUM, SERUM 8.7 mg/dL (8.5-10.1); CARBON DIOXIDE 28 mmol/L (21-32); CHLORIDE 102 mmol/L (98-107); CREATININE 1.4 mg/dL (0.6-1.3); GLUCOSE 104 mg/dL (74-106); POTASSIUM 4.1 mmol/L (3.5-5.1); SODIUM SERUM 134 mmol/L (136-145); UREA NITROGEN, BLOOD 39 mg/dL (7-18)
[2017-10-19 12:42] LABS: INR 0.97 (0.85-1.15)
[2017-10-19 12:53] LABS: TROPONIN I 4.237 ng/mL (0.00-0.056)
[2017-10-19 12:54] LABS: ALANINE AMINOTRANSFERASE 80 U/L (12-78); ALBUMIN 2.6 g/dL (3.4-5.0); ALKALINE PHOSPHATASE 66 U/L (46-116); ASPARTATE AMINOTRANSFERASE 43 U/L (15-37); B-TYPE NATRIURETIC PEPTIDE 8275 PG/ML (0-125); BILIRUBIN,DIRECT 0.1 mg/dL (0.0-0.2); BILIRUBIN,TOTAL 0.4 mg/dL (0.2-1.0); TOTAL PROTEIN, SERUM 5.6 g/dL (6.4-8.2)
--- NOTE | 2017-10-19 13:11 | NUR ---
PICKER/PULLER PAGED.
--- NOTE | 2017-10-19 13:17 | NUR ---
RT AT BEDSIDE FOR BIPAP
[2017-10-19] MEDS ORDERED: DILTIAZEM HCL 50 MG IV IV ONE (13:30)
[2017-10-19] MEDS ORDERED: DILTIAZEM HCL 50 MG IV ONE (13:36)
--- NOTE | 2017-10-19 13:48 | NUR ---
CALLED PHARMACY FOR HEPARIN DRIP
--- NOTE | 2017-10-19 14:18 | NUR ---
RT NOTE PT PLACED ON BIPAP PER MD ORDER. PT AWAKE AND ALERT. SETTINGS PRESCRIBED 26/01 16 40% ALARMS SET PER PROTOCOL AND AUDIBLE. VENT PLUGGED IN TO RED OUTLET. AMBU BAG AT BED SIDE. Addendum: 10/19/17 at 1419 by LEON DAVISON RT Amended: Links added.
--- NOTE | 2017-10-19 14:20 | NUR ---
HEPARIN 5,000 UNITS GIVEN ORDERED
[2017-10-19] MEDS: HEPARIN INFUSION/D5W 500 ML IV PRN ×2 (14:25→14:37)
[2017-10-19] MEDS ORDERED: HEPARIN SODIUM, PORCINE 5000 UNITS/1 ML VIAL ONE (14:32)
--- NOTE | 2017-10-19 14:33 | NUR ---
MD HARRIS AT BEDSIDE
--- NOTE | 2017-10-19 14:33 | NUR ---
RT AT BEDSIDE FOR ABG
[2017-10-19] MEDS ORDERED: POTA20TA83 PO (14:38)
[2017-10-19] MEDS ORDERED: BLOO-668 IN (14:38)
[2017-10-19] MEDS ORDERED: METO5TAB87 PO (14:38)
[2017-10-19] MEDS ORDERED: PRED20TA PO (14:38)
[2017-10-19] MEDS ORDERED: PANT40TA4 PO (14:38)
[2017-10-19 14:42] LABS: ABG BASE EXCESS 2.4 mmol/L; ABG OXYGEN SATURATION 98.6 % (92.0-98.5); ABG PH 7.541 (7.350-7.450); ABG PO2 145.8 mmHg (75.0-100.0); AaDO2 106.1 mmHg; COHb 0.4 % (0.5-1.5); MetHb 0.2 % (0.0-1.5); PEEP,BG 5 cm H2O; SITE, ABG Right Radial; VENT MODE, BG ST 15/5 40%
[2017-10-19] MEDS ORDERED: VANCOMYCIN 1 GM in IV D5W 250 ML IV ONE (15:00)
[2017-10-19] MEDS ORDERED: DEXTROSE 50%-WATER 50 ML DISP.SYRIN IV PRN (15:00)
[2017-10-19] MEDS ORDERED: MORPHINE SULFATE INJ 2 MG/ML DISP.SYRIN IV PRN (15:00)
[2017-10-19] MEDS ORDERED: ONDANSETRON HCL/PF 4 MG/2 ML VIAL IVP PRN (15:00)
--- NOTE | 2017-10-19 15:08 | NUR ---
REPORT GIVEN TO JERICHO GRACE FOR DANIELA
--- NOTE | 2017-10-19 15:30 | NUR ---
GRADE SCHOOL TEACHER- Received pt from ER via angel. Pt a/o x1. On bipap, respirations even & unlabored, mild tachypnea noted. Bedside monitor reveals Sinus Arrhythmia. Right hand 20G HL and LFA 20G present running Heparin gtt at 1200 units/hour. Slade catheter present and draining to gravity. Safety measures taken: bed locked and in low position, side rails up x2, bed alarm and call light within reach, will continue to monitor.
--- NOTE | 2017-10-19 15:37 | NUR ---
PATIENT TRANSPORTED TO ICU, VSS
[2017-10-19 15:58] LABS: MAGNESIUM 2.2 mg/dL (1.8-2.4)
[2017-10-19] MEDS ORDERED: FEE PK DOSING 1 MIN EA MC ONE (16:21)
--- NOTE | 2017-10-19 16:30 | NUR ---
SOCIAL WORKER PSYCHIATRIC- Pt attempting to remove bipap. RT placed pt on 3L NC. No distress noted. Saturating 100%. Will continue to monitor.
[2017-10-19] MEDS: VANCOMYCIN 1 GM in IV D5W 250 ML IV SCH (16:53)
[2017-10-19] MEDS ORDERED: VANCOMYCIN 1 GM in IV D5W 250 ML IV SCH (17:00)
[2017-10-19] MEDS: INSULIN REGULAR, HUMAN 100 UNIT/ML 3 ML VIAL SQ PRN (17:02)
[2017-10-19] MEDS: BLOOD SUGAR DIAGNOSTIC 1 EACH STRIP IN SCH ×2 (17:02→21:42)
[2017-10-19] MEDS: PIPERACILLIN /TAZOBACTAM 3.375 G in IV NS 0.9% 50 ML IV SCH ×2 (18:17→23:52)
--- NOTE | 2017-10-19 20:00 | NUR ---
CORRECTIONS CORPORAL INITIAL NOTE RECEIVED PT AWAKE AND ALERT. A/O X1 AND NOTED WITH CONFUSION AND RESTLESSNESS. BREATHING NOTED WITH EXTRA EFFORT AND SLIGHTLY LABORED. PLACED ON BIPAP WITH ORDERED SETTINGS AND SATURATING 100% . PT TAKING OFF THE BIPAP AND TRYING TO PULL ON IV LINES. PLACED ON BILATERAL SOFT WRIST RESTRAINTS. SECURED RESTRAINTS TO THE BED AND CIRCULATION CHECKED. HOB ELEVATED. NPO STATUS MAINTAINED. IV R HAND AND LFA CLEAN, DRY AND PATENT WITH FLUIDS INFUSING. AGUILAR CATHETER IN PLACE AND DRAINING BY GRAVITY. CALL LIGHT WITHIN REACH. WILL CONTINUE TO MONITOR.
[2017-10-19] MEDS: ATORVASTATIN 40 MG TABLET PO SCH (21:42)
[2017-10-19] MEDS: METOPROLOL TARTRATE 25 MG TABLET PO SCH (21:43)
--- NOTE | 2017-10-19 22:21 | NUR ---
BELT LOOP MACHINE OPERATOR NOTE RECEIVED RESULT FOR PTT OF 37. DOSING ORDERS TO INCREASE BY 200UNITS/HR. NEW HEPARIN DRIP 1400UNITS/HR. WILL SCHEDULE A PTT LAB DRAW IN 6 HRS FROM NOW.
--- NOTE | 2017-10-19 22:50 | NUR ---
RADIOLOGY AIDE NOTE RECEIVED CRITICAL RESULT FROM LAB TROP 5.037. NOTIFIED DR SUERO WITH NO NEW ORDER. WILL F/U TOMORROW.
[2017-10-20] VITALS (29 sets, daily range): BP systolic 92–132; BP diastolic 40–82
[2017-10-20 03:53] LABS: APPEARANCE,URINE TURBID (CLEAR); BILIRUBIN,URINE NEGATIVE (NEGATIVE); BLOOD, URINE 3+ Ery/uL (NEGATIVE); COLOR,URINE YELLOW (YELLOW); KETONES,URINE NEGATIVE (NEGATIVE); LEUKOCYTE ESTERASE ,URINE NEGATIVE (NEGATIVE); NITRITE, URINE NEGATIVE (NEGATIVE); PROTEIN,URINE 1+ mg/dl (NEGATIVE); UGLUCOSE NEGATIVE (NEGATIVE); UROBILINOGEN,URINE 0.2 EU/dL (0.2)
[2017-10-20 04:04] LABS: BACTERIA,URINE Moderate /HPF (None Seen); SQUAMOUS EPITHELIAL CELL,UR None Seen /HPF (None Seen); WBC,URINE 0-2 /HPF (0-3)
[2017-10-20 04:05] LABS: URINE AMORPHOUS URATE Many /HPF (None Seen)
[2017-10-20 05:12] LABS: BASOPHILS % (AUTO) 0.2 % (0.0-2.0); EOSINOPHILS % (AUTO) 0.2 % (0.0-6.0); HEMATOCRIT 35 % (39-51); HEMOGLOBIN 11.6 g/dL (13.5-17.5); LYMPHOCYTES # (AUTO) 1.5 /CMM (0.8-4.8); MEAN CORPUSCULAR HEMOGLOBIN 29 PG (26.0-33.0); MEAN CORPUSCULAR HGB CONC 33 g/dl (31.0-36.0); MEAN CORPUSCULAR VOLUME 87 fL (80-96); MONOCYTES % (AUTO) 8.5 % (2.0-12.0); NEUTROPHILS # (AUTO) 9.3 /CMM (1.8-8.9); NEUTROPHILS % (AUTO) 78.1 % (43.0-81.0); PLATELET COUNT (AUTO) 246 /CMM (150-450); RDW COEFFICIENT OF VARIATION 14.6 (11.5-15.0); RED BLOOD CELL COUNT(AUTO) 4.03 MIL/uL (4.5-6.0); WHITE BLOOD COUNT (AUTO) 11.9 K/uL (4.3-11.0)
[2017-10-20 05:34] LABS: ALANINE AMINOTRANSFERASE 86 U/L (12-78); ALBUMIN 2.7 g/dL (3.4-5.0); ALKALINE PHOSPHATASE 66 U/L (46-116); ASPARTATE AMINOTRANSFERASE 28 U/L (15-37); BILIRUBIN,TOTAL 0.8 mg/dL (0.2-1.0); CALCIUM, SERUM 8.8 mg/dL (8.5-10.1); CARBON DIOXIDE 29 mmol/L (21-32); CHLORIDE 102 mmol/L (98-107); CREATININE 1.4 mg/dL (0.6-1.3); GLUCOSE 121 mg/dL (74-106); POTASSIUM 3.7 mmol/L (3.5-5.1); SODIUM SERUM 139 mmol/L (136-145); TOTAL PROTEIN, SERUM 6.1 g/dL (6.4-8.2); UREA NITROGEN, BLOOD 36 mg/dL (7-18)
[2017-10-20 05:35] LABS: INR 1.02 (0.87-1.13)
[2017-10-20 05:40] LABS: CREATINE KINASE MB 4.8 ng/mL (0-3.6)
[2017-10-20 05:46] LABS: TROPONIN I 4.929 ng/mL (0.00-0.056)
--- NOTE | 2017-10-20 07:16 | NUR ---
PT TAKEN OFF BIPAP AND PLACED ON 3 L NC W/ STABLE VITAL SIGNS. PT AWAKE, COMFORTABLE, NO RESP DISTRESS NOTED
--- NOTE | 2017-10-20 07:27 | NUR ---
CURTAIN CLEANER CLOSING NOTE PT REMAINED STABLE DURING SHIFT. NO ACUTE DISTRESS NOTED. ALL NEEDS ATTENDED TO PROMPTLY. KEPT CLEAN AND DRY. CALL LIGHT WITHIN REACH. WILL ENDORSE TO NEXT SHIFT FOR CONTINUITY OF CARE.
--- NOTE | 2017-10-20 07:45 | NUR ---
RN NOTE RECEIVED PT RESTING IN BED. AWAKE AND ALERT ORIENTED TO NAME, AND IMMEDIATE SURROUNDINGS. ON O2@3LPM VIA NC. O2 SATURATION 100% AT THIS TIME. ON HEPARIN DRIP @1400U/HR. LATEST PTT 56, NEXT DRAW WILL BE BRITTNEY AT 0400. OCTAVIO MIDLINE PATENT FLUSHED WITH NS. PT ON NPO. BILATERAL SOFT WRIST RESTRAINTS RELEASED AND CHECKED FOR CIRCULATION. REPOSITIONED FOR COMFORT. CALL LIGHT WITHIN REACH WILL CONT TO MONITOR
[2017-10-20] MEDS: PIPERACILLIN /TAZOBACTAM 3.375 G in IV NS 0.9% 50 ML IV SCH ×3 (07:52→17:01)
[2017-10-20] MEDS: BLOOD SUGAR DIAGNOSTIC 1 EACH STRIP IN SCH ×4 (07:53→21:23)
[2017-10-20] MEDS: HEPARIN INFUSION/D5W 500 ML IV PRN (07:55)
[2017-10-20 08:21] LABS: ABG BASE EXCESS 5.1 mmol/L; ABG OXYGEN SATURATION 97.9 % (92.0-98.5); ABG PCO2 36.6 mmHg (35.0-45.0); ABG PH 7.506 (7.350-7.450); ABG PO2 125.3 mmHg (75.0-100.0); AaDO2 45.6 mmHg; COHb 0.3 % (0.5-1.5); MetHb 0.2 % (0.0-1.5); O2Hb 97.4 % (94.0-97.0); SITE, ABG Right Radial
[2017-10-20] MEDS: PANTOPRAZOLE 40 MG TABLET.DR PO SCH (08:45)
[2017-10-20] MEDS: ASPIRIN 81 MG TAB.CHEW PO SCH (08:45)
[2017-10-20] MEDS: CLOPIDOGREL BISULFATE 75 MG TABLET PO SCH (08:45)
[2017-10-20] MEDS: METOPROLOL TARTRATE 25 MG TABLET PO SCH ×2 (08:46→21:00)
[2017-10-20] MEDS ORDERED: FUROSEMIDE 40 MG/4 ML VIAL IV SCH (09:00)
--- NOTE | 2017-10-20 09:28 | NUR ---
RN NOTES PATIENT APPEARS ANXIOUS, HE SAID HE HAS TROUBLE BREATHING. RT MURAD AT BEDSIDE. PT IS ON O2 @2LPM VIA NC, SATING 100%. DR GAMBOA NOTIFIED WITH NEW ORDER XANAX 0.28MG PO Q8H PRN. ORDERS NOTED AND CARRIED OUT.
[2017-10-20] MEDS: ALPRAZOLAM 0.25 MG TABLET PO PRN (10:14)
[2017-10-20] MEDS: VANCOMYCIN 1 GM in IV D5W 250 ML IV SCH (17:52)
[2017-10-20] MEDS: INSULIN REGULAR, HUMAN 100 UNIT/ML 3 ML VIAL SQ PRN (18:04)
--- NOTE | 2017-10-20 19:45 | NUR ---
RN NOTE RECEIVED PT IN NO ACUTE DISTRESS IN BED. PT IS A/O X 1 WITH CONFUSION. PT IS ON O2 VIA NC @ 2LPM AND TOLERATING WELL WITH O2 SAT @ 100%. PT IS ON TELE WITH SR WITH PAC'S. PT HAS F/C THAT IS CLEAN DRY INTACT AND PATENT WITH YELLOW URINE DRAINING. PT HAS OCTAVIO MIDLINE THAT IS CLEAN DRY INTACT AND PATENT WITH HEPARIN DRIP @ 1400 U/HR. AWAITING PTT/INR IN THE AM. BED IN LOW LOCK POSITION WITH RAILS UP X 2. CALL LIGHT WITHIN REACH AND ALL SAFETY MEASURES ENSURED AND CARRIED OUT. WILL CONTINUE TO MONITOR PT.
[2017-10-20] MEDS: ATORVASTATIN 40 MG TABLET PO SCH (21:14)
[2017-10-21] VITALS (51 sets, daily range): BP systolic 85–151; BP diastolic 29–101
[2017-10-21] MEDS: HEPARIN INFUSION/D5W 500 ML IV PRN ×2 (02:15→06:12)
[2017-10-21 04:44] LABS: BASOPHILS % (AUTO) 0.2 % (0.0-2.0); EOSINOPHILS # (AUTO) 0.1 /CMM (0.0-0.7); EOSINOPHILS % (AUTO) 0.7 % (0.0-6.0); HEMATOCRIT 35 % (39-51); HEMOGLOBIN 11.8 g/dL (13.5-17.5); LYMPHOCYTES # (AUTO) 1.9 /CMM (0.8-4.8); LYMPHOCYTES % (AUTO) 13.5 % (20.0-44.0); MEAN CORPUSCULAR HEMOGLOBIN 29 PG (26.0-33.0); MEAN CORPUSCULAR HGB CONC 34 g/dl (31.0-36.0); MEAN CORPUSCULAR VOLUME 86 fL (80-96); MONOCYTES # (AUTO) 1.4 /CMM (0.1-1.30); MONOCYTES % (AUTO) 10.3 % (2.0-12.0); NEUTROPHILS # (AUTO) 10.4 /CMM (1.8-8.9); NEUTROPHILS % (AUTO) 75.3 % (43.0-81.0); PLATELET COUNT (AUTO) 235 /CMM (150-450); RDW COEFFICIENT OF VARIATION 14.5 (11.5-15.0); RED BLOOD CELL COUNT(AUTO) 4.09 MIL/uL (4.5-6.0); WHITE BLOOD COUNT (AUTO) 13.8 K/uL (4.3-11.0)
[2017-10-21] MEDS: PIPERACILLIN /TAZOBACTAM 3.375 G in IV NS 0.9% 50 ML IV SCH ×6 (05:01→23:49)
[2017-10-21 05:02] LABS: CALCIUM, SERUM 8.5 mg/dL (8.5-10.1); CARBON DIOXIDE 35 mmol/L (21-32); CHLORIDE 98 mmol/L (98-107); CREATININE 1.4 mg/dL (0.6-1.3); GLUCOSE 124 mg/dL (74-106); MAGNESIUM 2.1 mg/dL (1.8-2.4); PHOSPHORUS 3.9 mg/dL (2.5-4.9); POTASSIUM 3.8 mmol/L (3.5-5.1); SODIUM SERUM 137 mmol/L (136-145); UREA NITROGEN, BLOOD 24 mg/dL (7-18)
--- NOTE | 2017-10-21 05:59 | NUR ---
RN NOTE HEPARIN DRIP NOT CHANGED. APTT- 65.
--- NOTE | 2017-10-21 07:27 | NUR ---
RN NOTE PT REMAINS IN NO ACUTE DISTRESS IN BED. PT HAS EPISODES OF ANXIETY. PT DID NOT HAVE ANY SIGNIFICANT CHANGE IN CONDITION DURING SHIFT. ALL NEEDS MET, ALL ORDERS CARRIED OUT. WILL ENDORSE CARE TO AM RN FOR CONTINUITY OF CARE.
--- NOTE | 2017-10-21 08:00 | NUR ---
RN NOTE RECEIVED PT IN BED. AWAKE AND ALERT ORIENTED TO NAME, MORE CONFUSED THAN USUAL. PT NOTED VERY ANXIOUS. TRIED TO KEEP PT CALM, PT NOT DIRECTABLE. XANAX PRN GIVEN. WILL MONITOR FOR EFFECTIVENESS. ON O2@2LPM VIA NC. O2 SATURATION 100% AT THIS TIME. ON HEPARIN DRIP @1400U/HR. LATEST PTT 65, PER MAY DC HEPARIN THIS AM. OCTAVIO MIDLINE PATENT FLUSHED WITH NS. REPOSITIONED FOR COMFORT. CALL LIGHT WITHIN REACH WILL CONT TO MONITOR
[2017-10-21 08:06] LABS: ABG BASE EXCESS 8.7 mmol/L; ABG OXYGEN SATURATION 97.2 % (92.0-98.5); ABG PH 7.661 (7.350-7.450); ABG PO2 93.6 mmHg (75.0-100.0); AaDO2 75.4 mmHg; COHb 0.3 % (0.5-1.5); MetHb 0.4 % (0.0-1.5); O2Hb 96.5 % (94.0-97.0); SITE, ABG Right Brachial; VENT MODE, BG 2L NC
[2017-10-21] MEDS: PANTOPRAZOLE 40 MG TABLET.DR PO SCH (08:07)
[2017-10-21] MEDS: BLOOD SUGAR DIAGNOSTIC 1 EACH STRIP IN SCH ×4 (08:07→22:19)
[2017-10-21] MEDS: ALPRAZOLAM 0.25 MG TABLET PO PRN ×3 (08:08→17:52)
[2017-10-21] MEDS: CLOPIDOGREL BISULFATE 75 MG TABLET PO SCH (08:08)
[2017-10-21] MEDS: ASPIRIN 81 MG TAB.CHEW PO SCH (08:08)
[2017-10-21] MEDS: INSULIN REGULAR, HUMAN 100 UNIT/ML 3 ML VIAL SQ PRN ×3 (08:11→22:21)
[2017-10-21] MEDS: METOPROLOL TARTRATE 25 MG TABLET PO SCH ×2 (08:13→22:19)
[2017-10-21] MEDS ORDERED: FUROSEMIDE 20 MG TABLET PO SCH (09:00)
--- NOTE | 2017-10-21 12:30 | NUR ---
RN NOTES PT IN BED, APPEARS ANXIOUS, NOTED DEMENTED AND CONFUSED. NOTED WITH CONSTATNT ATTEMPTS OF GETTING OOB UNASSISTED. PT REMINDED NOT TO GET UP UNASSISTED. PT UNABLE TO FOLLOW SAFETY DIRECTIONS. RN CLOSELY MONITORED DT HIGH RISK FOR FALL. BILATERAL SOFT WRIST RESTRAINTS PLACED ORDERED BY MD. CIRCULATION CHECKED.
--- NOTE | 2017-10-21 13:30 | NUR ---
RN NOTES PT WITNESSED BY RN FALL FROM THE BED, PT HIT HIS HEAD ON THE SIDERAILS. PT WAS NOTED WITH SEVERAL ATTEMPTS OF GETTING OOB UNASSISTED. PT HAS BILATERAL SOFT WRIST RESTRAINTS, BUT PATIENT ABLE TO REMOVE. PT IS AWAKE ALERT WITH CONFUSION, UNABLE TO FOLLOW SAFETY DIRECTIONS. BED ALARM ON. ASSISTED PATIENT BACK WITH 3 PERSON ASSIST SAFELY. PT ABLE TO MOVE ALL HIS EXTREMITIES. NOTED WITH SMALL BRUISE ON L FOREHEAD, PT C/O HEADACHE. PHOTO TAKEN AND FILED ON CHART. PATIENT DENIES PAIN ON EXTREMITIES. REMINDED PT TO ASK FOR ASSISTANCE WHEN NEEDED. REALITY ORIENTATION PROVIDED, FREQUENT REORIENTATION PROVIDED. DR HARRIS WAS CALLED REPORTED INCIDENT. PER MD TO DO STAT HEAD CT, NEURO CHECKS Q1H. WILL CONT TO MONITOR ANY CHANGES. CALL LIGHT KEPT WITHIN EASY REACH. JERICHO BLAKE MONITORED PT AT BEDSIDE. VS STABLE AT THIS TIME.
[2017-10-21] MEDS: VANCOMYCIN 1 GM in IV D5W 250 ML IV SCH ×2 (16:01→16:58)
[2017-10-21] MEDS: VANCOMYCIN 1 GM in IV NS 0.9% 250 ML IV SCH (18:48)
[2017-10-21] MEDS: acetaZOLAMIDE 250 MG TABLET PO SCH (18:48)
--- NOTE | 2017-10-21 19:40 | NUR ---
WEB OPERATIONS MANAGER INITIAL NOTE RECEIVED PATIENT FROM LOGAN ECHAVARRIA. PT IN BED, FAMILY AT BEDSIDE. SITTER XIN AT BEDSIDE. STEPHANIE HAD A FALL TODAY, CT WAS DONE BUT HE REMAINS RESTLESS AND AGITATED TRYING TO GET OUT OF BED. WILL CONTINUE TO CLOSELY MONITOR. PT IS AWAKE BUT CONFUSED. LUNG SOUNDS DIMINISHED, ON 2L NC. BOWEL SOUNDS PRESENT. AGUILAR INTACT AND DRAINING. IV PATENT AND INTACT. BED IN LOW LOCKED POSITION.
[2017-10-21] MEDS: ATORVASTATIN 40 MG TABLET PO SCH (22:18)
[2017-10-22] VITALS (48 sets, daily range): BP systolic 91–125; BP diastolic 41–95
[2017-10-22] MEDS: ALPRAZOLAM 0.25 MG TABLET PO PRN ×2 (04:38→18:35)
[2017-10-22] MEDS: PIPERACILLIN /TAZOBACTAM 3.375 G in IV NS 0.9% 50 ML IV SCH ×4 (05:00→23:51)
[2017-10-22 05:02] LABS: BASOPHILS % (AUTO) 0.3 % (0.0-2.0); EOSINOPHILS # (AUTO) 0.1 /CMM (0.0-0.7); EOSINOPHILS % (AUTO) 0.5 % (0.0-6.0); HEMATOCRIT 34 % (39-51); HEMOGLOBIN 11.2 g/dL (13.5-17.5); LYMPHOCYTES # (AUTO) 1.8 /CMM (0.8-4.8); LYMPHOCYTES % (AUTO) 13.3 % (20.0-44.0); MEAN CORPUSCULAR HEMOGLOBIN 29 PG (26.0-33.0); MEAN CORPUSCULAR HGB CONC 33 g/dl (31.0-36.0); MEAN CORPUSCULAR VOLUME 86 fL (80-96); MONOCYTES # (AUTO) 1.5 /CMM (0.1-1.30); MONOCYTES % (AUTO) 10.7 % (2.0-12.0); NEUTROPHILS # (AUTO) 10.4 /CMM (1.8-8.9); NEUTROPHILS % (AUTO) 75.2 % (43.0-81.0); PLATELET COUNT (AUTO) 236 /CMM (150-450); RDW COEFFICIENT OF VARIATION 14.3 (11.5-15.0); RED BLOOD CELL COUNT(AUTO) 3.92 MIL/uL (4.5-6.0); WHITE BLOOD COUNT (AUTO) 13.8 K/uL (4.3-11.0)
[2017-10-22 05:23] LABS: CALCIUM, SERUM 8.7 mg/dL (8.5-10.1); CARBON DIOXIDE 29 mmol/L (21-32); CHLORIDE 98 mmol/L (98-107); CREATININE 1.4 mg/dL (0.6-1.3); GLUCOSE 116 mg/dL (74-106); MAGNESIUM 2.1 mg/dL (1.8-2.4); PHOSPHORUS 4.1 mg/dL (2.5-4.9); POTASSIUM 3.1 mmol/L (3.5-5.1); SODIUM SERUM 137 mmol/L (136-145); UREA NITROGEN, BLOOD 20 mg/dL (7-18)
[2017-10-22] MEDS: VANCOMYCIN 1 GM in IV NS 0.9% 250 ML IV SCH ×2 (05:57→18:30)
--- NOTE | 2017-10-22 07:41 | NUR ---
INITIAL CARPET LOOM FIXER NOTE RCVD PT AWAKE AND ALERT TO SELF, ABLE TO FOLLOW SIMPLE COMMANDS. SR ON TELE, BREATHING WELL ON O2 VIA NC. AGUILAR TO GRAVITY DRAINING CLOUDY, YELLOW URINE. OCTAVIO MIDLINE C/D/I/PATENT. NO S/O INFILTRATION/PHLEBITIS OBSERVED IVF INFUSING TKO. SITTER AT BEDSIDE, PT OFF RESTRAINTS AT THIS TIME. WILL CONTINUE TO MONITOR PT FOR SAFETY AND COMFORT. CALL LIGHT WITHIN REACH. BED IN LOW AND LOCKED POSITION.
[2017-10-22] MEDS: BLOOD SUGAR DIAGNOSTIC 1 EACH STRIP IN SCH ×4 (07:59→21:23)
[2017-10-22] MEDS: INSULIN REGULAR, HUMAN 100 UNIT/ML 3 ML VIAL SQ PRN ×3 (08:00→17:19)
[2017-10-22] MEDS: PANTOPRAZOLE 40 MG TABLET.DR PO SCH (08:00)
[2017-10-22] MEDS: CLOPIDOGREL BISULFATE 75 MG TABLET PO SCH (08:00)
[2017-10-22] MEDS: ASPIRIN 81 MG TAB.CHEW PO SCH (08:01)
[2017-10-22] MEDS: METOPROLOL TARTRATE 25 MG TABLET PO SCH ×2 (08:04→21:29)
[2017-10-22] MEDS: ACETAMINOPHEN 325 MG TABLET PO PRN (08:38)
[2017-10-22] MEDS: acetaZOLAMIDE 250 MG TABLET PO SCH (09:36)
[2017-10-22] MEDS ORDERED: POTASSIUM CHLORIDE 20 MEQ TAB.PRT.SR PO ONE (10:00)
--- NOTE | 2017-10-22 13:10 | NUR ---
OFFSET PLATE PREPARATION SUPERVISOR NOTE CALLED [employer], PER DR. STEVEN ROCA WAS CONSULTED TO ASSESS PT. FACE SHEET WAS FAXED TO [employer], ELIU CONFIRMED RECEIPT OF FACE SHEET.
[2017-10-22] MEDS ORDERED: Z GUARD REMEDY 2 OZ OINT TP PRN (18:30)
--- NOTE | 2017-10-22 19:20 | NUR ---
HOTEL REGISTRATION CLERK INITIAL NOTE RECEIVED PATIENT FROM ROMULO ECHAVARRIA . PT IN BED. ASLEEP BUT EASILY AROUSABLE. LUNG SOUNDS DIMINISHED, ON 2L NC. BOWEL SOUNDS PRESENT. INCONTINENT TO URINE AND STOOL. AGUILAR INTACT AND DRAINING URINE. PULSES PRESENT. IV PATENT AND INTACT. SITTER AT BEDSIDE. BED IN LOW LOCKED POSITION. WILL CONTINUE TO MONITOR.
--- NOTE | 2017-10-22 19:22 | NUR ---
SILVER HOLLOWARE ASSEMBLER NOTE PT REMAINS STABLE, SHOWING NO S/O DISTRESS/PAIN AT THIS TIME. SITTER AT BEDSIDE. SR ON TELE. TOLERATING O2 VIA NC, GOD PO INTAKE. AGUILAR TO GRAVITY DRAINING CLOUDY, YELLOW URINE. OCTAVIO MIDLINE C/D/I/PATENT. NO S/O INFILTRATION/PHLEBITIS OBSERVED UPON FLUSHING. PT'S CARE ENDORSED TO ON LINE CSR RN FOR CONTINUITY OF CARE.
[2017-10-22] MEDS: ATORVASTATIN 40 MG TABLET PO SCH (21:23)
[2017-10-23] VITALS (25 sets, daily range): BP systolic 112–146; BP diastolic 52–78
[2017-10-23] MEDS: ALPRAZOLAM 0.25 MG TABLET PO PRN ×3 (02:52→18:40)
[2017-10-23 05:07] LABS: BASOPHILS % (AUTO) 0.3 % (0.0-2.0); EOSINOPHILS # (AUTO) 0.2 /CMM (0.0-0.7); EOSINOPHILS % (AUTO) 1.1 % (0.0-6.0); HEMATOCRIT 37 % (39-51); HEMOGLOBIN 12.2 g/dL (13.5-17.5); LYMPHOCYTES # (AUTO) 1.5 /CMM (0.8-4.8); LYMPHOCYTES % (AUTO) 9.1 % (20.0-44.0); MEAN CORPUSCULAR HEMOGLOBIN 29 PG (26.0-33.0); MEAN CORPUSCULAR HGB CONC 33 g/dl (31.0-36.0); MEAN CORPUSCULAR VOLUME 87 fL (80-96); MONOCYTES # (AUTO) 1.5 /CMM (0.1-1.30); MONOCYTES % (AUTO) 9.3 % (2.0-12.0); NEUTROPHILS # (AUTO) 13.3 /CMM (1.8-8.9); NEUTROPHILS % (AUTO) 80.2 % (43.0-81.0); PLATELET COUNT (AUTO) 264 /CMM (150-450); RDW COEFFICIENT OF VARIATION 14.4 (11.5-15.0); RED BLOOD CELL COUNT(AUTO) 4.25 MIL/uL (4.5-6.0); WHITE BLOOD COUNT (AUTO) 16.5 K/uL (4.3-11.0)
[2017-10-23] MEDS: PIPERACILLIN /TAZOBACTAM 3.375 G in IV NS 0.9% 50 ML IV SCH ×4 (05:17→23:21)
[2017-10-23 05:18] LABS: CALCIUM, SERUM 8.8 mg/dL (8.5-10.1); CARBON DIOXIDE 21 mmol/L (21-32); CHLORIDE 103 mmol/L (98-107); CREATININE 1.4 mg/dL (0.6-1.3); GLUCOSE 129 mg/dL (74-106); MAGNESIUM 2.1 mg/dL (1.8-2.4); PHOSPHORUS 3.8 mg/dL (2.5-4.9); POTASSIUM 3.8 mmol/L (3.5-5.1); SODIUM SERUM 136 mmol/L (136-145); UREA NITROGEN, BLOOD 21 mg/dL (7-18)
[2017-10-23] MEDS: VANCOMYCIN 1 GM in IV NS 0.9% 250 ML IV SCH ×2 (06:00→06:06)
--- NOTE | 2017-10-23 06:27 | NUR ---
AERONAUTICAL DRAFTER SUSANNA ORIGINALLY SCANNED AND SPIKED BUT DUE TO HIGH VANCLonnie LEVEL DID NOT ADMINISTER.
--- NOTE | 2017-10-23 07:44 | NUR ---
INITIAL PRINCIPAL SECRETARY NOTE RCVD PT AWAKE AND ALERT TO SELF, RE-ORIENTED TO PLACE, SITUATION, TIME. SR ON TELE BREATHING WELL ON O2 VIA NC. AGUILAR TO GRAVITY DRAINING CLOUDY, YELLOW URINE WITH SEDIMENT. OCTAVIO MIDLINE C/D/I/PATENT. NO S/O INFILTRATION/PHLEBITIS OBSERVED IVF INFUSING TKO. SITTER AT BEDSIDE. WILL CONTINUE TO MONITOR PT FOR SAFETY AND COMFORT. CALL LIGHT WITHIN REACH. BED IN LOW AND LOCKED POSITION.
[2017-10-23] MEDS: ASPIRIN 81 MG TAB.CHEW PO SCH (08:27)
[2017-10-23] MEDS: BLOOD SUGAR DIAGNOSTIC 1 EACH STRIP IN SCH ×4 (08:27→21:38)
[2017-10-23] MEDS: PANTOPRAZOLE 40 MG TABLET.DR PO SCH (08:27)
[2017-10-23] MEDS: CLOPIDOGREL BISULFATE 75 MG TABLET PO SCH (08:27)
[2017-10-23] MEDS: METOPROLOL TARTRATE 25 MG TABLET PO SCH ×2 (08:28→21:38)
[2017-10-23] MEDS: INSULIN REGULAR, HUMAN 100 UNIT/ML 3 ML VIAL SQ PRN ×2 (08:34→12:09)
--- NOTE | 2017-10-23 15:46 | NUR ---
INDUSTRIAL ENGINEER NOTE DR. HARRIS INFORMED OF PT'S URINE BECOMING MORE CRANBERRY COLORED, PT ON ASA AND PLAVIX. SHE RECOMMENDED TO CONSULT WITH DR. VILLEGAS. HE WAS CONTACTED REGARDING ABOVE AND RECOMMENDED TO HOLD PLAVIX. MEDICATION WILL BE DISCONTINUED FOR NOW. WILL CONTINUE TO MONITOR.
[2017-10-23] MEDS: ACETAMINOPHEN 325 MG TABLET PO PRN (16:09)
[2017-10-23] MEDS: buPROPion SR 100 MG TABLET.ER PO SCH (16:10)
[2017-10-23] MEDS ORDERED: VANCOMYCIN 1 GM in IV D5W 250 ML IV SCH (17:00)
[2017-10-23 17:20] LABS: ABG BASE EXCESS -2.5 mmol/L; ABG OXYGEN SATURATION 97.5 % (92.0-98.5); ABG PCO2 26.7 mmHg (35.0-45.0); ABG PH 7.487 (7.350-7.450); ABG PO2 110.8 mmHg (75.0-100.0); AaDO2 57.3 mmHg; COHb 0.3 % (0.5-1.5); MetHb 0.5 % (0.0-1.5); O2Hb 96.7 % (94.0-97.0); SITE, ABG Right Radial; VENT MODE, BG NC 2L
--- NOTE | 2017-10-23 18:46 | NUR ---
CHIEF GUARD NOTE PT REMAINS STABLE, SR ON TELE, TOLERATING O2 VIA NC, AGUILAR TO GRAVITY DRAINING CRANBERRY COLORED URINE. OCTAVIO MIDLINE C/D/I/PATENT. NO S/O INFILTRATION/PHLEBITIS OBSERVED UPON FLUSHING. PT'S CARE WILL BE ENDORSED TO SPONSORSHIP COORDINATOR RN FOR CONTINUITY OF CARE. BED IN LOW AND LOCKED POSITION. CALL LIGHT WITHIN REACH. SITTER AT BEDSIDE.
--- NOTE | 2017-10-23 19:30 | NUR ---
MEAT TRIMMER INITIAL NOTE PT RECEIVED AWAKE IN BED. A/O X1 WITH NOTED CONFUSION ANXIETY AND RESTLESSNESS BUT ABLE TO MAKE SOME NEEDS KNOWN. PT ON CARE WITH NURSE AT BEDSIDE. TELE- SINUS RHYTHM 80'S WITH PAC'S AND PVC'S. ON 2L OF O2 VIA NC AND SATURATING 99%. BREATHING EVEN AND UNLABORED. IV OCTAVIO MIDLINE CLEAN, DRY WITH FLUIDS INFUSING AT THIS TIME. AGUILAR CATHETER IN PLACE AND DRAINING SLIGHTLY PINK URINE BY GRAVITY. CALL LIGHT WITHIN REACH. WILL CONTINUE TO CLOSELY MONITOR.
[2017-10-23] MEDS ORDERED: LORAZEPAM INJ 2 MG/ML VIAL ONE (21:36)
[2017-10-23] MEDS: ATORVASTATIN 40 MG TABLET PO SCH (21:38)
[2017-10-23] MEDS ORDERED: LORAZEPAM INJ 2 MG/ML VIAL IV ONE (22:30)
--- NOTE | 2017-10-23 22:33 | NUR ---
HEAVY DUTY TRUCK MECHANIC NOTE NOTED WITH INCREASED IRRITABILITY, RESTLESSNESS, AND AGITATION. SPOKE WITH CIGARETTE MACHINES MECHANIC DR. CORRIGAN WITH NEW ORDER FOR ONE TIME DOSE ATIVAN 0.5MG IVP NOW. ORDERS NOTED AND CARRIED OUT. PT TOLERATED MED WELL. WILL MONITOR CLOSELY AT BEDSIDE.
[2017-10-24] VITALS (21 sets, daily range): BP systolic 100–143; BP diastolic 33–123
[2017-10-24] MEDS: ALPRAZOLAM 0.25 MG TABLET PO PRN ×3 (01:08→18:48)
[2017-10-24 05:01] LABS: BASOPHILS # (AUTO) 0.1 /CMM (0.0-0.2); BASOPHILS % (AUTO) 0.4 % (0.0-2.0); EOSINOPHILS # (AUTO) 0.2 /CMM (0.0-0.7); EOSINOPHILS % (AUTO) 1.4 % (0.0-6.0); HEMATOCRIT 35 % (39-51); HEMOGLOBIN 11.7 g/dL (13.5-17.5); LYMPHOCYTES # (AUTO) 1.7 /CMM (0.8-4.8); LYMPHOCYTES % (AUTO) 10.7 % (20.0-44.0); MEAN CORPUSCULAR HEMOGLOBIN 29 PG (26.0-33.0); MEAN CORPUSCULAR HGB CONC 33 g/dl (31.0-36.0); MEAN CORPUSCULAR VOLUME 87 fL (80-96); MONOCYTES # (AUTO) 1.6 /CMM (0.1-1.30); MONOCYTES % (AUTO) 9.9 % (2.0-12.0); NEUTROPHILS # (AUTO) 12.3 /CMM (1.8-8.9); NEUTROPHILS % (AUTO) 77.6 % (43.0-81.0); PLATELET COUNT (AUTO) 260 /CMM (150-450); RDW COEFFICIENT OF VARIATION 14.2 (11.5-15.0); RED BLOOD CELL COUNT(AUTO) 4.05 MIL/uL (4.5-6.0); WHITE BLOOD COUNT (AUTO) 15.9 K/uL (4.3-11.0)
[2017-10-24 05:13] LABS: CALCIUM, SERUM 8.9 mg/dL (8.5-10.1); CARBON DIOXIDE 23 mmol/L (21-32); CHLORIDE 102 mmol/L (98-107); CREATININE 1.4 mg/dL (0.6-1.3); GLUCOSE 135 mg/dL (74-106); MAGNESIUM 2.1 mg/dL (1.8-2.4); PHOSPHORUS 3.8 mg/dL (2.5-4.9); POTASSIUM 3.8 mmol/L (3.5-5.1); SODIUM SERUM 134 mmol/L (136-145); UREA NITROGEN, BLOOD 22 mg/dL (7-18)
[2017-10-24] MEDS: PIPERACILLIN /TAZOBACTAM 3.375 G in IV NS 0.9% 50 ML IV SCH ×4 (05:29→23:14)
--- NOTE | 2017-10-24 06:56 | NUR ---
SUPERVISOR DRY CELL ASSEMBLY CLOSING NOTE PT REMAINED STABLE DURING SHIFT. NO ACUTE DISTRESS NOTED. 2L OF O2 VIA NC WELL TOLERATED THROUGHOUT THE SHIFT. NOTED WITH EPISODES OF RESTLESSNESS, YELLING AND INTERMITTENT/SHORT SLEEP. HOB ELEVATED. KEPT CLEAN AND DRY. ALL NEEDS ATTENDED TO PROMPTLY. SITTER AT BEDSIDE THROUGHOUT THE SOUND CONTROLLER. CALL LIGHT WITHIN REACH. WILL ENDORSE TO NEXT SHIFT FOR CONTINUITY OF CARE.
--- NOTE | 2017-10-24 07:50 | NUR ---
DAMAGE CUTTER: pt.is A/Ox1, rest now, weak, cooperative now, has sitter 1:1, was very confused over night, on Xanax prn, SR with PVCs, SBP over 100, O2 sat. 94-98% on 2 L O2 n/c, no c/o now
[2017-10-24] MEDS: BLOOD SUGAR DIAGNOSTIC 1 EACH STRIP IN SCH ×4 (08:25→21:43)
[2017-10-24] MEDS: ASPIRIN 81 MG TAB.CHEW PO SCH (08:57)
[2017-10-24] MEDS: PANTOPRAZOLE 40 MG TABLET.DR PO SCH (08:58)
[2017-10-24] MEDS: buPROPion SR 100 MG TABLET.ER PO SCH ×2 (08:58→16:58)
[2017-10-24] MEDS: METOPROLOL TARTRATE 25 MG TABLET PO SCH ×2 (09:07→21:33)
--- NOTE | 2017-10-24 10:14 | NUR ---
LAND AGENT: /Heidi is in room, updated with pt.current condition, neuro status, VS, I/O, meds, to tele transfer order, said: will as ig he will see pt. to reevaluate pt.psych.current c/o, meds
[2017-10-24] MEDS: ACETAMINOPHEN 325 MG TABLET PO PRN ×2 (11:25→11:30)
--- NOTE | 2017-10-24 11:30 | NUR ---
CLINIC PHYSICIAN DIRECTOR: pt. 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
--- NOTE | 2017-10-24 12:11 | NUR ---
DISPENSER OPERATOR: was paged and ordered Narco 5/325 q6h prn for 3-03/23 pain
[2017-10-24] MEDS: HYDROCODONE/APAP 5/325MG 1 EACH TABLET PO PRN ×2 (12:30→22:53)
--- NOTE | 2017-10-24 13:00 | NUR ---
CARPET CLEANER: [place] is effective/no c/o pain now, pt.is rest, Ox1, confused, can follow commands, weak, neuro status is same, ST, SBP [id number], O2 sat. over 96%
--- NOTE | 2017-10-24 17:15 | NUR ---
GROUP HOME PARAPROFESSIONAL: VSS, no c/o, pt s transferred to Tele after report for JERICHO Robles
--- NOTE | 2017-10-24 17:30 | NUR ---
RN NOTE RECEIVED PT ON BED WITH SITTER AT BED SIDE, PT AOX1, ANXIOUS, ON TELEMETRY SR 74 WITH PACS, ON NC 2.0 L/MIN, SATURATION 99%, F/C IN PLACE, OCTAVIO MIDLINE IN PLACE, WILL CONTINUE TO MONITOR. CALL LIGHT WITHIN REACH
[2017-10-24] MEDS: INSULIN REGULAR, HUMAN 100 UNIT/ML 3 ML VIAL SQ PRN ×2 (17:49→21:47)
--- NOTE | 2017-10-24 19:00 | NUR ---
RN NOTES Received patient on a 1:1 watch by a sitter,awake,alert,converses ,follows commands answers questions but with periods of confusion and forgetfulness.Has hx of falling out of bed this hospitalization (thats when patient was put on 1:1 watch.)Not in distress,breathing regular and non labored,denies any pain.Midline on the OCTAVIO .Comfort care done,needs attended.
[2017-10-24] MEDS: ATORVASTATIN 40 MG TABLET PO SCH (21:29)
--- NOTE | 2017-10-24 22:00 | NUR ---
DIE CUTTER APPRENTICE NOTES Due meds given,patient very needy,needs a lot of attention,gets agitated and restless if does not get what he wants right away.
[2017-10-25] VITALS: BP 108/53
--- NOTE | 2017-10-25 | NUR ---
RN NOTES Stable,V/S remians stable,hyperventilating at times but not in distress,saturation always 100%.Hallucinating a lot,talking non sense ,seeing things ,needed to be reoriented to reality at times.Will closely monitor and render psychological support.
[2017-10-25] MEDS: ALPRAZOLAM 0.25 MG TABLET PO PRN ×2 (00:51→15:27)
[2017-10-25 04:00] VITALS: BP 109/59
--- NOTE | 2017-10-25 04:00 | NUR ---
RN NOTES AM bath done,remains stable,when awakens remains very needy .Continue 1:1 watch as patient tends to get confuse and hallucinates and gets anxious.Fall precaution.
[2017-10-25] MEDS: PIPERACILLIN /TAZOBACTAM 3.375 G in IV NS 0.9% 50 ML IV SCH ×3 (05:26→17:06)
[2017-10-25 07:35] LABS: CALCIUM, SERUM 8.6 mg/dL (8.5-10.1); CARBON DIOXIDE 20 mmol/L (21-32); CHLORIDE 103 mmol/L (98-107); CREATININE 1.2 mg/dL (0.6-1.3); GLUCOSE 148 mg/dL (74-106); POTASSIUM 3.4 mmol/L (3.5-5.1); SODIUM SERUM 135 mmol/L (136-145); UREA NITROGEN, BLOOD 19 mg/dL (7-18)
[2017-10-25 08:00] VITALS: BP 109/47
--- NOTE | 2017-10-25 08:00 | NUR ---
TELE1/RN AM SHIFT INITIAL NOTES RECEIVED PT ASLEEP IN BED, AROUSEABLE, PT A/O X 1, CONFUSED. NO ACUTE RESPIRATORY DISTRESS, ON 2L O2 VIA N/C SATURATING @ 100%, LUNG SOUNDS SLIGHTLY DIMINISHED. ON TELE WITH SINUS RHYTHM WITH OCCASIONAL PVCs, HR 62. MIDLINE PATENT WITH NO S/S OF INFECTION, ON TKO. AGUILAR CATHETER INTACT WITH YELLOW URINE OUTPUT. PT ON ONE ON ONE. COMFORTABLE AT THIS TIME. SCHEDULED AM MEDS TO BE GIVEN. CL WITHIN REACHED AND SAFETY MAINTAINED. ON GOING MONITORING.
[2017-10-25] MEDS: BLOOD SUGAR DIAGNOSTIC 1 EACH STRIP IN SCH ×4 (08:11→22:33)
[2017-10-25] MEDS: INSULIN REGULAR, HUMAN 100 UNIT/ML 3 ML VIAL SQ PRN ×3 (08:36→22:36)
[2017-10-25] MEDS: ASPIRIN 81 MG TAB.CHEW PO SCH (08:38)
[2017-10-25] MEDS: buPROPion SR 100 MG TABLET.ER PO SCH ×2 (08:38→16:51)
[2017-10-25] MEDS: METOPROLOL TARTRATE 25 MG TABLET PO SCH ×2 (08:38→21:23)
[2017-10-25] MEDS: PANTOPRAZOLE 40 MG TABLET.DR PO SCH (08:38)
--- NOTE | 2017-10-25 09:54 | NUR ---
TELE1/RN ROUNDS - DR. HARRIS UPDATED PT'S CONDITION. PT SEEN & EXAMINED BY DR. HARRIS. NO NEW ORDERS RECEIVED AT THIS TIME. MONITORING CONTINUED.
--- NOTE | 2017-10-25 10:11 | NUR ---
TELE1/RN ROUNDS - DR. CAPONE PT SEEN & EXAMINED BY DR. CAPONE. NO NEW ORDERS RECEIVED AT THIS TIME. MONITORING CONTINUED.
[2017-10-25] MEDS ORDERED: POTASSIUM CHLORIDE 20 MEQ TAB.PRT.SR PO SCH (11:00)
[2017-10-25] MEDS ORDERED: Z GUARD REMEDY 4 OZ OINT TP PRN (11:00)
[2017-10-25] MEDS: HYDROCODONE/APAP 5/325MG 1 EACH TABLET PO PRN ×2 (15:26→22:10)
--- NOTE | 2017-10-25 15:30 | NUR ---
MS1/RN ROUNDS - DR. CURRY UPDATED PT'S CONDITION. PT SEEN & EXAMINED BY DR. CURRY. NO NEW ORDERS RECEIVED AT THIS TIME. MONITORING CONTINUED.
[2017-10-25 16:00] VITALS: BP 149/50
--- NOTE | 2017-10-25 17:30 | NUR ---
MS1/RN AFTERNOON ROUNDS PM CARE PROVIDED. NO ACUTE CHANGE OF CONDITION. MONITORING CONTINUED.
--- NOTE | 2017-10-25 19:00 | NUR ---
While rounding at change of shift. Patient was noted to be distress. Patient is in semi-sapp's position patient does not tolerate high sapp's positioning at this point and time. c/o sob, noted clear lung sounds in all silverman with no episodes of cardiopulmonary distress on previous shift. Patient is a/o 2 with bouts of confusion and hallucinations. Noted on o2 via n.c. at 3 ltrs. Noted patient with f/c at foot of bed with clear yellow urine draining. Patient was noted to have a wet linens and they smelled of urine, confirmed placement of f/c, f/c is patent and in place. Call light with in reach continue to monior.
--- NOTE | 2017-10-25 19:24 | NUR ---
MS1/RN AM SHIFT END NOTES ALL NEEDS MET. NO ACUTE CHANGE OF CONDITION NOTED DURING THE SHIFT. PT ENDORSED TO PM NURSE TO CONTINUE CARE. PT WITH SITTER AT BEDSIDE. CL WITHIN REACHED AND SAFETY MAINTAINED.
[2017-10-25 20:00] VITALS: BP_SYST 118; BP_SYST 149; BP_DIAS 50; BP_DIAS 56
[2017-10-25] MEDS: ATORVASTATIN 40 MG TABLET PO SCH (22:35)
--- NOTE | 2017-10-25 22:36 | NUR ---
NOTED RBS 158 PER SLIDING SCALE 2 UNITS OR REGULAR INSULIN DECLINED BY PATIENT. PATIENT TEACHING AND REINFORCEMENT IN PLAN OF CARE. NO EPISODES OF HYPO/HYPERGLYCEMIA ON SHIFT. SITTER AT BED SIDE CALL LIGHT WITH IN REACH.
[2017-10-26] MEDS: PIPERACILLIN /TAZOBACTAM 3.375 G in IV NS 0.9% 50 ML IV SCH ×4 (00:08→17:01)
--- NOTE | 2017-10-26 02:00 | NUR ---
noted patient visibly distress, o2 sat at 99% on 2 ltrs via n.c. RBS check; patient states feels worst, no episodes of cardioplumonary distress noted at this point and time, v/s are stable o2 sat 99%. per endorsement, noted patient to have been extubated 10/23/17 s/p 3rd day. Checked bladder no bladder distention noted at this point and time. call light with in reach. Continue to monitor.
[2017-10-26 04:00] VITALS: BP 136/60
[2017-10-26 07:26] LABS: BASOPHILS % (AUTO) 0.4 % (0.0-2.0); EOSINOPHILS # (AUTO) 0.1 /CMM (0.0-0.7); EOSINOPHILS % (AUTO) 0.6 % (0.0-6.0); HEMATOCRIT 33 % (39-51); HEMOGLOBIN 10.9 g/dL (13.5-17.5); LYMPHOCYTES # (AUTO) 1.7 /CMM (0.8-4.8); LYMPHOCYTES % (AUTO) 11.9 % (20.0-44.0); MEAN CORPUSCULAR HEMOGLOBIN 29 PG (26.0-33.0); MEAN CORPUSCULAR HGB CONC 34 g/dl (31.0-36.0); MEAN CORPUSCULAR VOLUME 85 fL (80-96); MONOCYTES # (AUTO) 1.5 /CMM (0.1-1.30); MONOCYTES % (AUTO) 10.7 % (2.0-12.0); NEUTROPHILS # (AUTO) 10.7 /CMM (1.8-8.9); NEUTROPHILS % (AUTO) 76.4 % (43.0-81.0); PLATELET COUNT (AUTO) 277 /CMM (150-450); RDW COEFFICIENT OF VARIATION 14.9 (11.5-15.0); RED BLOOD CELL COUNT(AUTO) 3.83 MIL/uL (4.5-6.0)
--- NOTE | 2017-10-26 07:30 | NUR ---
MS RN OPENING NOTES RECEIVED PATIENT IN STABLE CONDITION. IN NO APPARENT DISTRESS. PATIENT IS RESTING IN BED. CALL LIGHT IS WITHIN REACH. IV IS PATENT AND INTACT. WILL CONTINUE TO MONITOR.
[2017-10-26 08:00] VITALS: BP 124/82
[2017-10-26 08:01] LABS: CARBON DIOXIDE 22 mmol/L (21-32); CHLORIDE 107 mmol/L (98-107); CREATININE 1.2 mg/dL (0.6-1.3); GLUCOSE 157 mg/dL (74-106); POTASSIUM 3.8 mmol/L (3.5-5.1); SODIUM SERUM 140 mmol/L (136-145); UREA NITROGEN, BLOOD 20 mg/dL (7-18)
[2017-10-26] MEDS: METOPROLOL TARTRATE 25 MG TABLET PO SCH ×2 (08:03→21:32)
[2017-10-26] MEDS: buPROPion SR 100 MG TABLET.ER PO SCH ×2 (08:03→16:34)
[2017-10-26] MEDS: PANTOPRAZOLE 40 MG TABLET.DR PO SCH (08:03)
[2017-10-26] MEDS: ASPIRIN 81 MG TAB.CHEW PO SCH (08:03)
[2017-10-26] MEDS: INSULIN REGULAR, HUMAN 100 UNIT/ML 3 ML VIAL SQ PRN ×4 (08:12→21:30)
[2017-10-26] MEDS: BLOOD SUGAR DIAGNOSTIC 1 EACH STRIP IN SCH ×4 (08:15→21:36)
[2017-10-26] MEDS: HYDROCODONE/APAP 5/325MG 1 EACH TABLET PO PRN (10:17)
[2017-10-26] MEDS: ALPRAZOLAM 0.25 MG TABLET PO PRN ×2 (10:54→21:31)
[2017-10-26 11:45] LABS: MAGNESIUM 2.1 mg/dL (1.8-2.4)
[2017-10-26 12:00] VITALS: BP 120/61
[2017-10-26] MEDS: ACETAMINOPHEN 325 MG TABLET PO PRN (14:43)
--- NOTE | 2017-10-26 18:52 | NUR ---
MS RN CLOSING NOTES PATIENT IS IN STABLE CONDITION. IN NO APPARENT DISTRESS. ALL NEEDS WERE MET. BEDSIDE RAILS ARE UPX 2. BED IS LOCKED AND LOWERED. CALL LIGHT IS WITHIN REACH. IV IS PATENT AND INTACT. WILL ENDORSE CARE TO LABORER WOOD PRESERVING PLANT NURSE FOR DANIELA.
[2017-10-26 20:00] VITALS: BP 115/72
[2017-10-26] MEDS: ATORVASTATIN 40 MG TABLET PO SCH (21:31)
[2017-10-27] MEDS: HYDROCODONE/APAP 5/325MG 1 EACH TABLET PO PRN (01:07)
[2017-10-27] MEDS: ALPRAZOLAM 0.25 MG TABLET PO PRN ×2 (01:45→08:43)
--- NOTE | 2017-10-27 04:35 | NUR ---
PATIENT C/O 06/23 LEFT SHOULDER PAIN. NOT[address] CORRIGAN, WITH ORDERS FOR XRAY OF LEFT SHOULDER IN AM AND OK TO GIVE ANOTHER NORCO NOW. NOTED AND CARRIED OUT. PRIMARY NURSE INFORMED.
[2017-10-27] MEDS ORDERED: HYDROCODONE/APAP 5/325MG 1 EACH TABLET PO ONE (05:00)
[2017-10-27] MEDS: INSULIN REGULAR, HUMAN 100 UNIT/ML 3 ML VIAL SQ PRN ×3 (06:07→16:58)
[2017-10-27] MEDS: BLOOD SUGAR DIAGNOSTIC 1 EACH STRIP IN SCH ×4 (06:15→21:33)
[2017-10-27 06:48] LABS: CALCIUM, SERUM 8.7 mg/dL (8.5-10.1); CARBON DIOXIDE 22 mmol/L (21-32); CHLORIDE 101 mmol/L (98-107); CREATININE 1.1 mg/dL (0.6-1.3); GLUCOSE 133 mg/dL (74-106); MAGNESIUM 2.2 mg/dL (1.8-2.4); POTASSIUM 3.5 mmol/L (3.5-5.1); SODIUM SERUM 135 mmol/L (136-145); UREA NITROGEN, BLOOD 22 mg/dL (7-18)
[2017-10-27 06:56] LABS: BASOPHILS # (AUTO) 0.1 /CMM (0.0-0.2); BASOPHILS % (AUTO) 0.5 % (0.0-2.0); EOSINOPHILS # (AUTO) 0.1 /CMM (0.0-0.7); EOSINOPHILS % (AUTO) 0.9 % (0.0-6.0); HEMATOCRIT 31 % (39-51); HEMOGLOBIN 10.5 g/dL (13.5-17.5); LYMPHOCYTES # (AUTO) 1.7 /CMM (0.8-4.8); LYMPHOCYTES % (AUTO) 12.9 % (20.0-44.0); MEAN CORPUSCULAR HEMOGLOBIN 29 PG (26.0-33.0); MEAN CORPUSCULAR HGB CONC 34 g/dl (31.0-36.0); MEAN CORPUSCULAR VOLUME 85 fL (80-96); MONOCYTES # (AUTO) 1.5 /CMM (0.1-1.30); MONOCYTES % (AUTO) 11.4 % (2.0-12.0); NEUTROPHILS # (AUTO) 9.8 /CMM (1.8-8.9); NEUTROPHILS % (AUTO) 74.3 % (43.0-81.0); PLATELET COUNT (AUTO) 263 /CMM (150-450); RDW COEFFICIENT OF VARIATION 14.9 (11.5-15.0); RED BLOOD CELL COUNT(AUTO) 3.66 MIL/uL (4.5-6.0); WHITE BLOOD COUNT (AUTO) 13.2 K/uL (4.3-11.0)
[2017-10-27 08:00] VITALS: BP 140/76
--- NOTE | 2017-10-27 08:00 | NUR ---
RN NOTES RECEIVED PT AWAKE AND ALERT; NAD. NO C/O PAIN MADE. SITTER AT BS. REMAINS ON O2 INH VIA NC @ 2 L/MIN; NO SOB. SAFETY ENSURED. CALL LIGHT WITHIN REACH. WILL MONITOR
[2017-10-27] MEDS: PANTOPRAZOLE 40 MG TABLET.DR PO SCH (08:36)
[2017-10-27] MEDS: buPROPion SR 100 MG TABLET.ER PO SCH ×2 (08:36→16:12)
[2017-10-27] MEDS: ASPIRIN 81 MG TAB.CHEW PO SCH (08:36)
[2017-10-27] MEDS: METOPROLOL TARTRATE 25 MG TABLET PO SCH ×2 (08:37→20:24)
[2017-10-27 16:00] VITALS: BP 126/72
--- NOTE | 2017-10-27 19:19 | NUR ---
RN NOTES ENDORSED PT IN STABLE CONDITION. NO SIGNIFICANT CHANGES NOTED DURING THIS SHIFT
--- NOTE | 2017-10-27 19:20 | NUR ---
RN NOTES RECEIVED PT AWAKE, HOB ELEVATED, ON 2LPM O2 VIA NC AND TOLERATED WELL. PT ALERT AND ORIENTED X1 WITH CONFUSION AND PERIODS OF ANXIETY NOTED. PT DENIES SOB, PAIN, NAUSEA AND VOMITING. RIGHT UPPER MIDLINE PATENT AND INTACT. AUGILAR CATH INTACT WITH CLEAR YELLOW URINE OUTPUT NOTED. SAFETY MEASURES AND FALL PRECAUTION OBSERVED, SITTER AT BEDSIDE. KEPT COMFORTABLE AND ATTENDED, CALL LIGHT WITH IN REACH. WILL CONTINUE TO MONITOR PT.
[2017-10-27 20:00] VITALS: BP 131/87
[2017-10-27] MEDS: ATORVASTATIN 40 MG TABLET PO SCH (21:34)
[2017-10-28] MEDS: ALPRAZOLAM 0.25 MG TABLET PO PRN ×2 (02:55→10:55)
[2017-10-28] MEDS: BLOOD SUGAR DIAGNOSTIC 1 EACH STRIP IN SCH ×4 (06:37→21:10)
[2017-10-28] MEDS: INSULIN REGULAR, HUMAN 100 UNIT/ML 3 ML VIAL SQ PRN ×4 (06:38→21:21)
[2017-10-28 07:17] LABS: BASOPHILS % (AUTO) 0.3 % (0.0-2.0); EOSINOPHILS % (AUTO) 0.2 % (0.0-6.0); HEMATOCRIT 32 % (39-51); HEMOGLOBIN 10.9 g/dL (13.5-17.5); LYMPHOCYTES # (AUTO) 1.6 /CMM (0.8-4.8); LYMPHOCYTES % (AUTO) 9.9 % (20.0-44.0); MEAN CORPUSCULAR HEMOGLOBIN 29 PG (26.0-33.0); MEAN CORPUSCULAR HGB CONC 34 g/dl (31.0-36.0); MEAN CORPUSCULAR VOLUME 85 fL (80-96); MONOCYTES # (AUTO) 1.6 /CMM (0.1-1.30); MONOCYTES % (AUTO) 10.1 % (2.0-12.0); NEUTROPHILS # (AUTO) 12.9 /CMM (1.8-8.9); NEUTROPHILS % (AUTO) 79.5 % (43.0-81.0); PLATELET COUNT (AUTO) 289 /CMM (150-450); RDW COEFFICIENT OF VARIATION 14.9 (11.5-15.0); WHITE BLOOD COUNT (AUTO) 16.3 K/uL (4.3-11.0)
--- NOTE | 2017-10-28 07:19 | NUR ---
RN NOTES PT SLEPT ON AND OFF OVERNIGHT. VITAL SIGNS STABLE. PT STILL WITH CONFUSION AND PERIODS OF ANXIETY. DENIES SOB, PAIN, NAUSEA AND VOMITING. NO SIGNIFICANT CHANGE IN CONDITION NOTED.
[2017-10-28 07:42] LABS: CALCIUM, SERUM 8.8 mg/dL (8.5-10.1); CARBON DIOXIDE 24 mmol/L (21-32); CHLORIDE 99 mmol/L (98-107); GLUCOSE 145 mg/dL (74-106); MAGNESIUM 2.1 mg/dL (1.8-2.4); PHOSPHORUS 3.1 mg/dL (2.5-4.9); POTASSIUM 3.6 mmol/L (3.5-5.1); SODIUM SERUM 132 mmol/L (136-145); UREA NITROGEN, BLOOD 22 mg/dL (7-18)
--- NOTE | 2017-10-28 07:51 | NUR ---
MS RN OPENING NOTES RECEIVED PT AWAKE IN BED IN NO ACUTE SIGNS OF DISTRESS. SITTER AT BEDSIDE FOR CLOSE MONITORING. A/O X2, VERBALLY RESPONSIVE WITH NO C/O PAIN OR DISCOMFORTS AT THIS TIME. ON 02 VIA N/C AT 2LPM, BREATHING EVEN & UNLABORED. OCTAVIO MIDLINE INTACT AND PATENT W/ DRESSING CDI. AGUILAR CATH IN PLACE WITH CLEAR YELLOW URINE NOTED AT BEDSIDE URINARY BAG. SAFETY MEASURES IN PLACE W/ SIDE RAILS UP, BED LOCKED & IN LOWEST POSITION. CALL LIGHT WITHIN EASY REACH. WILL CONTINUE TO MONITOR.
[2017-10-28 08:00] VITALS: BP 138/72
[2017-10-28] MEDS: buPROPion SR 100 MG TABLET.ER PO SCH ×2 (09:07→16:29)
[2017-10-28] MEDS: PANTOPRAZOLE 40 MG TABLET.DR PO SCH (09:07)
[2017-10-28] MEDS: ASPIRIN 81 MG TAB.CHEW PO SCH (09:07)
[2017-10-28] MEDS: METOPROLOL TARTRATE 25 MG TABLET PO SCH ×2 (09:08→21:09)
[2017-10-28] MEDS: HYDROCODONE/APAP 5/325MG 1 EACH TABLET PO PRN ×2 (09:30→17:08)
--- NOTE | 2017-10-28 11:02 | NUR ---
RN NOTES PATIENT VERY RESTLESS, PRN XANAX 0.25MG TAB GIVEN. WILL CONTINUE TO MONITOR.
[2017-10-28] MEDS: LIDOCAINE 5% (PATCH) 1 EA PATCH TP SCH (13:00)
[2017-10-28] MEDS ORDERED: FUROSEMIDE 20 MG/2 ML VIAL IV ONE (15:00)
[2017-10-28 16:00] VITALS: BP 142/82
--- NOTE | 2017-10-28 18:49 | NUR ---
MS RN CLOSING NOTES PT AWAKE IN BED AND WATCHING TV. SITTER AT BEDSIDE FOR CLOSE MONITORING. A/O X2-3, SAME VERBALLY RESPONSIVE. PT RESTLESS AND CONFUSED AT TIMES, MORAL SUPPORT AND NEEDS ATTENDED PROMPTLY. ON 02 VIA N/C AT 2LPM, BREATHING EVEN & UNLABORED. OCTAVIO MIDLINE INTACT AND PATENT W/ DRESSING CDI. AGUILAR CATH IN PLACE WITH CLEAR YELLOW URINE NOTED AT BEDSIDE URINARY BAG. SAFETY MEASURES IN PLACE W/ SIDE RAILS UP, BED LOCKED & IN LOWEST POSITION. CALL LIGHT WITHIN EASY REACH. WILL ENDOSRTED TO BRANCH BANKER NURSE FOR DANIELA.
--- NOTE | 2017-10-28 19:30 | NUR ---
MS RN OPENING NOTES: PATIENT IN BED, AOX2, ON O2 AT 2 LPM VIA NC, BREATHING EVEN AND UNLABORED. COMPLAINS OF PAIN OVER HIS LEFT SHOULDER SCALED AT 8/10. NOTED LIDOCAINE 5% PATCH APPLIED. POSITIONED FOR COMFORT. OCTAVIO MIDLINE INTACT AND PATENT TO FLUSH. AGUILAR CATHETER IN PLACE DRAINING CLEAR YELLOW URINE. PROVIDED FOR COMFORT AND SAFETY. BED IN LOWEST AND LOCKED POSITION, SIDERAILS UP X 3. SITTER AT BEDSIDE. CALL LIGHT WITHIN REACH. WILL CONT TO MONITOR.
[2017-10-28 20:00] VITALS: BP 113/74
[2017-10-28] MEDS: ATORVASTATIN 40 MG TABLET PO SCH (21:09)
[2017-10-28] MEDS: ACETAMINOPHEN 325 MG TABLET PO PRN (21:09)
--- NOTE | 2017-10-28 21:21 | NUR ---
RN NOTES: PATIENT COMPLAINED OF LEFT SHOULDER PAIN SCALED AT 8/10. ADMNISTERED TYLENOL 650 MG PO FOR NOW, NORCO NOT YET DUE AT THIS TIME. BLOOD SUGAR CHECKED AT 182 MG/DL, ADMINISTERED 4 UNITS REGULAR INSULIN PER SCALE. WILL CONT TO MONITOR.
[2017-10-29 01:00] VITALS: BP 141/76
[2017-10-29] MEDS: ALPRAZOLAM 0.25 MG TABLET PO PRN (01:19)
--- NOTE | 2017-10-29 01:22 | NUR ---
RN NOTES: PATIENT YELLING, APPEARS AGITATED. VS CHECKED, STABLE. ADMINISTERED XANAX 0.25 MG PO. LIGHT SNACK ALSO GIVEN PER REQUEST. SITTER AT BEDSIDE.
[2017-10-29 04:00] VITALS: BP 114/67
--- NOTE | 2017-10-29 06:40 | NUR ---
MS RN CLOSING NOTES: PATIENT IN BED, AOX3, ON O2 AT 2 LPM VIA NC, BREATHING EVEN AND UNLABORED. BREATH SOUNDS CLEAR. AGUILAR CATHETER IN PLACE DRAINING CLEAR YELLOW URINE. OCTAVIO MIDLINE INTACT AND PATENT TO FLUSH. DUE MEDS GIVEN. PROVIDED FOR COMFORT AND SAFETY. BED IN LOWEST AND LOCKED POSITION, SIDERAILS UP X 3, CALL LIGHT WITHIN REACH, SITTER AT BEDSIDE. WILL ENDORSE TO AM RN FOR DANIELA.
[2017-10-29] MEDS: BLOOD SUGAR DIAGNOSTIC 1 EACH STRIP IN SCH ×4 (07:57→22:00)
[2017-10-29 08:00] VITALS: BP 118/71
[2017-10-29] MEDS: buPROPion SR 100 MG TABLET.ER PO SCH ×2 (10:15→17:00)
[2017-10-29] MEDS: PANTOPRAZOLE 40 MG TABLET.DR PO SCH (10:15)
[2017-10-29] MEDS: ASPIRIN 81 MG TAB.CHEW PO SCH (10:15)
[2017-10-29] MEDS: METOPROLOL TARTRATE 25 MG TABLET PO SCH ×2 (10:18→21:40)
[2017-10-29] MEDS: LIDOCAINE 5% (PATCH) 1 EA PATCH TP SCH (13:57)
[2017-10-29] MEDS: INSULIN REGULAR, HUMAN 100 UNIT/ML 3 ML VIAL SQ PRN ×3 (14:14→22:12)
--- NOTE | 2017-10-29 19:30 | NUR ---
RN/ MS NOTES: RECEIVED PT. FROM AM NURSE. A/O X 2 W/ PERIODS OF CONFUSION /AGITATION. O2 @ 2LPM VIA N/C SAT 98%. NO S/S OF RESPIRATORY DISTRESS NOTED. F/C PATENT AND INTACT DRAINING CLEAR YELLOW URINE. HAS A MIDLINE OCTAVIO PATENT AND INTACT W/ DRESSING C/D/I W/ NO S/S OF INFECTION/INFILTRATION NOTED. REPORT GIVEN TO ALFONZO ON 2ND FLOOR PT. IS BEING TRANSFERRED TO 208 BED 1. PT. TRANSFERRED W/ BED W/ O2 @ 2PLM W/ NURSE TO 208-1 IN STABLE CONDITION.
--- NOTE | 2017-10-29 20:47 | NUR ---
MS RN CLOSING NOTES: RECEIVE PT FROM ANIL AOX3, ON O2 AT 2 LPM VIA NC 98%, BREATHING EVEN AND UNLABORED. OCTAVIO MIDLINE INTACT AND PATENT FLUSH. STABLE, AGUILAR CATHETER IN PLACE DRAINING CLEAR YELLOW URINE. BED IN LOWEST AND LOCKED POSITION, SIDERAILS UP X 3, CALL LIGHT WITHIN REACH, WILL CONT TO MTR.
[2017-10-29 21:00] VITALS: BP 154/72
[2017-10-29] MEDS: ATORVASTATIN 40 MG TABLET PO SCH (21:40)
--- NOTE | 2017-10-29 21:41 | NUR ---
ENDORSE TO ANOTHER RN, PT STABLE
--- NOTE | 2017-10-29 22:00 | NUR ---
RN NOTES RECEIVED PT FROM ANOTHER NURSE ,PT. IS A/OX1, SITTER AT BEDSIDE, F/S DRAINING CLEAR YELLOW URINE, MIDLINE IN PLACE, CALL LIGHT WITHIN REACH, SIODERAILS UPX2, CONTINUE TO MONITOR
[2017-10-30] MEDS: ALPRAZOLAM 0.25 MG TABLET PO PRN ×3 (01:41→21:06)
--- NOTE | 2017-10-30 01:46 | NUR ---
RN NOTES PT. IS SO ANXIOUS- XANA 0.25 MH PO GIVEN ORDERED, V/S STABLE
--- NOTE | 2017-10-30 07:00 | NUR ---
RN NOTES PT. IS AWAKE, NOT IN DISTRESS, NO PAIN NOTED, MORNING CARE RENDERED, CALL LIGHT WITHIN REACH, SIDERAILSUPX2, PT. NEEDS ATTENDED
[2017-10-30] MEDS: BLOOD SUGAR DIAGNOSTIC 1 EACH STRIP IN SCH ×4 (07:12→21:08)
[2017-10-30] MEDS: INSULIN REGULAR, HUMAN 100 UNIT/ML 3 ML VIAL SQ PRN ×4 (07:21→21:14)
--- NOTE | 2017-10-30 07:40 | NUR ---
RN OPENING NOTES RECEIVED PT, PT IS STABLE AND RESTING IN BED. A/OX1. NO S/S OF RESP DISTRESS OR SOB. NO C/O PAIN AT THIS TIME. FC PATENT AND IN PLACE. IV ACCESS LOCATED ON OCTAVIO MIDLINE, CURRENTLY SL. PER MD NOTE, CONTINUE HOSPITALIZATION. SAFETY MEASURES IN PLACE, CALL LIGHT WITHIN REACH. WILL CONTINUE TO MONITOR.
[2017-10-30 08:50] VITALS: BP 152/92
[2017-10-30 09:02] LABS: BASOPHILS % (AUTO) 0.2 % (0.0-2.0); EOSINOPHILS % (AUTO) 0.1 % (0.0-6.0); HEMATOCRIT 30 % (39-51); HEMOGLOBIN 10.1 g/dL (13.5-17.5); LYMPHOCYTES # (AUTO) 1.3 /CMM (0.8-4.8); LYMPHOCYTES % (AUTO) 8.5 % (20.0-44.0); MEAN CORPUSCULAR HEMOGLOBIN 28 PG (26.0-33.0); MEAN CORPUSCULAR HGB CONC 34 g/dl (31.0-36.0); MEAN CORPUSCULAR VOLUME 84 fL (80-96); MONOCYTES # (AUTO) 1.6 /CMM (0.1-1.30); NEUTROPHILS # (AUTO) 12.6 /CMM (1.8-8.9); NEUTROPHILS % (AUTO) 81.2 % (43.0-81.0); PLATELET COUNT (AUTO) 292 /CMM (150-450); RDW COEFFICIENT OF VARIATION 15.4 (11.5-15.0); RED BLOOD CELL COUNT(AUTO) 3.54 MIL/uL (4.5-6.0); WHITE BLOOD COUNT (AUTO) 15.6 K/uL (4.3-11.0)
[2017-10-30] MEDS: PANTOPRAZOLE 40 MG TABLET.DR PO SCH (09:14)
[2017-10-30] MEDS: buPROPion SR 100 MG TABLET.ER PO SCH ×2 (09:14→17:09)
[2017-10-30] MEDS: ASPIRIN 81 MG TAB.CHEW PO SCH (09:14)
[2017-10-30] MEDS: METOPROLOL TARTRATE 25 MG TABLET PO SCH ×2 (09:15→21:06)
[2017-10-30 09:17] LABS: CARBON DIOXIDE 24 mmol/L (21-32); CHLORIDE 99 mmol/L (98-107); CREATININE 1.1 mg/dL (0.6-1.3); GLUCOSE 141 mg/dL (74-106); MAGNESIUM 1.9 mg/dL (1.8-2.4); PHOSPHORUS 3.2 mg/dL (2.5-4.9); POTASSIUM 3.6 mmol/L (3.5-5.1); SODIUM SERUM 136 mmol/L (136-145); UREA NITROGEN, BLOOD 29 mg/dL (7-18)
[2017-10-30] MEDS: LIDOCAINE 5% (PATCH) 1 EA PATCH TP SCH (13:01)
[2017-10-30] MEDS: HYDROCODONE/APAP 5/325MG 1 EACH TABLET PO PRN ×2 (14:21→22:47)
--- NOTE | 2017-10-30 19:28 | NUR ---
RN CLOSING NOTES PT IN BED RESTING, SITTER AT BEDSIDE. NO S/S OF RESP DISTRESS OR SOB. PT DOES NOT APPEAR TO BE IN PAIN AT THIS TIME. ALL PT NEEDS ANTICIPATED AND MET. SAFETY MEASURES IN PLACE, CALL LIGHT WITHIN REACH. WILL ENDORSE TO BICYCLE II ASSEMBLER FOR DANIELA.
--- NOTE | 2017-10-30 19:35 | NUR ---
MS RN NOTES ON BED WITH HOB ELEVATED,BREATHING REGULAR,NOT IN ANY FORM OF DISTRESS,A/O X1-2,KEEP ON CALLING Q 1- 2 MINUTES JUST TO ADJUST HIS PILLOW.AGUILAR CATH IN PLACE DRAINING YELLOWISH OUTPUT.[employer] MATTRESS IN PLACE FOR SKIN MANAGEMENT.MIDLINE SALINE LOCK RIGHT UPPER ARM INTACT AND PATENT.WILL CONTINUE TO MONITOR STATUS.
[2017-10-30 20:40] VITALS: BP 131/75
[2017-10-30] MEDS: ATORVASTATIN 40 MG TABLET PO SCH (21:06)
--- NOTE | 2017-10-30 21:06 | NUR ---
MS RN NOTES KEEP ON SCREAMING Q 1 MINUTE,XANAX 0.25MG PO GIVEN FOR ANXIETY.
--- NOTE | 2017-10-30 21:15 | NUR ---
MS RN NOTES ACCU-CHECK BLOOD SUGAR CHECK 163,COVERED WITH HUMULIN 2 UNITS PER SLIDING SCALE.
--- NOTE | 2017-10-30 22:47 | NUR ---
MS RN NOTES C/O GENERALIZED PAIN 7/10 ON PAIN SCALE.NORCO 5/325MG,1 TAB PO GIVEN ORDERED FOR MODERATE PAIN.FALL PRECAUTION OBSERVED.
[2017-10-31] MEDS: BLOOD SUGAR DIAGNOSTIC 1 EACH STRIP IN SCH ×4 (05:17→22:02)
[2017-10-31] MEDS: INSULIN REGULAR, HUMAN 100 UNIT/ML 3 ML VIAL SQ PRN ×3 (05:27→22:08)
--- NOTE | 2017-10-31 06:49 | NUR ---
MS RN NOTES REMAINS CONFUSED,SCREAMS AT TIMES,FALL RISK,SITTER AT BEDSIDE.SLEPT FOR SHORT PERIODS OF TIME.AGUILAR CATH DRAINS WELL.IN NO ACUTE DISTRESS.WILL ENDORSE TO DAY NURSE FOR DANIELA.
--- NOTE | 2017-10-31 07:22 | NUR ---
RN OPENING NOTES RECEIVED PT. PT IS STABLE AND IN BED, SITTER AT BEDSIDE. A/OX2. PT APPEARS TO BE ANXIOUS, COMPLAINING OF DISCOMFORT FROM NC, BED, POSITIONING, AND VARIOUS OTHER SOURCES. PT IS ON 2L O2 VIA NC HOWEVER REMOVES NC FREQUENTLY. IV ACCESS LOCATED ON RIGHT UPPER ARM, MIDLINE CURRENTLY SL. SAFETY MEASURES IN PLACE, CALL LIGHT WITHIN REACH. WILL CONTINUE TO MONITOR.
[2017-10-31 08:00] VITALS: BP_SYST 117; BP_SYST 135; BP_DIAS 72; BP_DIAS 75
[2017-10-31] MEDS: ASPIRIN 81 MG TAB.CHEW PO SCH (08:22)
[2017-10-31] MEDS: PANTOPRAZOLE 40 MG TABLET.DR PO SCH (08:23)
[2017-10-31] MEDS: buPROPion SR 100 MG TABLET.ER PO SCH ×2 (08:23→17:05)
[2017-10-31] MEDS: METOPROLOL TARTRATE 25 MG TABLET PO SCH ×2 (08:23→22:02)
[2017-10-31] MEDS: ALPRAZOLAM 0.25 MG TABLET PO PRN ×2 (08:26→17:05)
[2017-10-31] MEDS: HYDROCODONE/APAP 5/325MG 1 EACH TABLET PO PRN ×2 (11:34→17:06)
[2017-10-31] MEDS: LIDOCAINE 5% (PATCH) 1 EA PATCH TP SCH (12:50)
[2017-10-31 12:53] LABS: BASOPHILS # (AUTO) 0.1 /CMM (0.0-0.2); BASOPHILS % (AUTO) 0.6 % (0.0-2.0); EOSINOPHILS # (AUTO) 0.1 /CMM (0.0-0.7); EOSINOPHILS % (AUTO) 0.5 % (0.0-6.0); HEMATOCRIT 32 % (39-51); HEMOGLOBIN 10.7 g/dL (13.5-17.5); LYMPHOCYTES # (AUTO) 1.8 /CMM (0.8-4.8); LYMPHOCYTES % (AUTO) 13.4 % (20.0-44.0); MEAN CORPUSCULAR HEMOGLOBIN 28 PG (26.0-33.0); MEAN CORPUSCULAR HGB CONC 34 g/dl (31.0-36.0); MEAN CORPUSCULAR VOLUME 84 fL (80-96); MONOCYTES # (AUTO) 1.7 /CMM (0.1-1.30); MONOCYTES % (AUTO) 12.4 % (2.0-12.0); NEUTROPHILS % (AUTO) 73.1 % (43.0-81.0); PLATELET COUNT (AUTO) 309 /CMM (150-450); RDW COEFFICIENT OF VARIATION 14.9 (11.5-15.0); RED BLOOD CELL COUNT(AUTO) 3.81 MIL/uL (4.5-6.0); WHITE BLOOD COUNT (AUTO) 13.7 K/uL (4.3-11.0)
[2017-10-31 13:08] LABS: CARBON DIOXIDE 24 mmol/L (21-32); CHLORIDE 95 mmol/L (98-107); CREATININE 1.1 mg/dL (0.6-1.3); GLUCOSE 157 mg/dL (74-106); PHOSPHORUS 3.8 mg/dL (2.5-4.9); POTASSIUM 3.8 mmol/L (3.5-5.1); SODIUM SERUM 128 mmol/L (136-145); UREA NITROGEN, BLOOD 31 mg/dL (7-18)
[2017-10-31 16:00] VITALS: BP 117/75
[2017-10-31 16:08] LABS: BASOPHILS # (AUTO) 0.1 /CMM (0.0-0.2); BASOPHILS % (AUTO) 0.4 % (0.0-2.0); EOSINOPHILS # (AUTO) 0.1 /CMM (0.0-0.7); EOSINOPHILS % (AUTO) 0.5 % (0.0-6.0); HEMATOCRIT 33 % (39-51); LYMPHOCYTES # (AUTO) 1.8 /CMM (0.8-4.8); LYMPHOCYTES % (AUTO) 12.1 % (20.0-44.0); MEAN CORPUSCULAR HEMOGLOBIN 28 PG (26.0-33.0); MEAN CORPUSCULAR HGB CONC 34 g/dl (31.0-36.0); MEAN CORPUSCULAR VOLUME 84 fL (80-96); MONOCYTES # (AUTO) 1.8 /CMM (0.1-1.30); MONOCYTES % (AUTO) 12.1 % (2.0-12.0); NEUTROPHILS % (AUTO) 74.9 % (43.0-81.0); PLATELET COUNT (AUTO) 320 /CMM (150-450); RDW COEFFICIENT OF VARIATION 15.4 (11.5-15.0); RED BLOOD CELL COUNT(AUTO) 3.92 MIL/uL (4.5-6.0); WHITE BLOOD COUNT (AUTO) 14.8 K/uL (4.3-11.0)
--- NOTE | 2017-10-31 19:17 | NUR ---
RN CLOSING NOTES PT IN BED RESTING. NO S/S OF RESP DISTRESS. PT HAS NO C/O PAIN AT THIS TIME. ALL PT NEEDS ANTICIPATED AND MET. SAFETY MEASURES IN PLACE. CALL LIGHT IN REACH. WILL ENDORSE TO ENVIRONMENTAL HEALTH MANAGER FOR DANIELA.
--- NOTE | 2017-10-31 19:30 | NUR ---
RN OPENING NOTES RECEIVED PT. AWAKE IN BED. SITTER AT BEDSIDE. A/OX2. PT IS ON 2L O2 VIA NC. IV ACCESS LOCATED ON RIGHT UPPER ARM, MIDLINE CURRENTLY SL. SAFETY MEASURES IN PLACE, CALL LIGHT WITHIN REACH. WILL CONTINUE TO MONITOR.
[2017-10-31 20:00] VITALS: BP 114/72
[2017-10-31] MEDS: ATORVASTATIN 40 MG TABLET PO SCH (22:01)
[2017-11-01] MEDS: INSULIN REGULAR, HUMAN 100 UNIT/ML 3 ML VIAL SQ PRN ×2 (06:42→12:18)
[2017-11-01] MEDS: BLOOD SUGAR DIAGNOSTIC 1 EACH STRIP IN SCH ×2 (07:30→12:14)
--- NOTE | 2017-11-01 08:11 | NUR ---
RN OPENING NOTES. PT RECEIVED A&0X2, POLITE AND CONVERSATIONAL. PT WITH 1:1 SITTER. PT TOLERATING ROOM AIR WITHOUT S/S OF RESP DISTRESS AND DENIES SOB SAO2 97%. PT DENIES PAIN AT THIS TIME. PT WITH R UA MIDLINE INTACT AND SALINE FLUSH PATENT. PT WITH AGUILAR CATH INTACT AND OPERATIONAL DRAINING CLEAR LITE AUDRA/YELLOW URINE. PT BED IN LOWEST LOCKED POSITION WITH HANDRAILSX3 AND CALL DAILEY WITHIN REACH. PT BRIEFED ON TODAY'S POC, WILL REORIENTATE NEEDED. PT WITHOUT CONCERN OR COMPLAINT AT THIS TIME.
[2017-11-01 08:57] VITALS: BP 134/76
[2017-11-01] MEDS: PANTOPRAZOLE 40 MG TABLET.DR PO SCH (09:42)
[2017-11-01] MEDS: buPROPion SR 100 MG TABLET.ER PO SCH (09:43)
[2017-11-01] MEDS: METOPROLOL TARTRATE 25 MG TABLET PO SCH (09:43)
[2017-11-01] MEDS: ASPIRIN 81 MG TAB.CHEW PO SCH (09:43)
[2017-11-01] MEDS: HYDROCODONE/APAP 5/325MG 1 EACH TABLET PO PRN (09:45)
[2017-11-01] MEDS ORDERED: BUPR100T6 PO (10:11)
[2017-11-01] MEDS ORDERED: METO25TA20 PO (10:11)
[2017-11-01 10:54] LABS: ALANINE AMINOTRANSFERASE 31 U/L (12-78); ALBUMIN 2.5 g/dL (3.4-5.0); ALKALINE PHOSPHATASE 83 U/L (46-116); ASPARTATE AMINOTRANSFERASE 18 U/L (15-37); BILIRUBIN,DIRECT 0.1 mg/dL (0.0-0.2); BILIRUBIN,TOTAL 0.6 mg/dL (0.2-1.0); CALCIUM, SERUM 9.2 mg/dL (8.5-10.1); CARBON DIOXIDE 25 mmol/L (21-32); CHLORIDE 94 mmol/L (98-107); CREATININE 1.2 mg/dL (0.6-1.3); GLUCOSE 150 mg/dL (74-106); POTASSIUM 4.1 mmol/L (3.5-5.1); SODIUM SERUM 130 mmol/L (136-145); TOTAL PROTEIN, SERUM 6.6 g/dL (6.4-8.2); UREA NITROGEN, BLOOD 31 mg/dL (7-18)
[2017-11-01] MEDS: LIDOCAINE 5% (PATCH) 1 EA PATCH TP SCH (12:19)
[2017-11-01] MEDS: ALPRAZOLAM 0.25 MG TABLET PO PRN (14:17)
[2017-11-01 15:42] VITALS: BP 134/77
--- NOTE | 2017-11-01 19:30 | NUR ---
RN D/C NOTE. PT PREPARED FOR D/C PER MD. REPORT CALLED TO OREN AT [facility]. PT TOLERATING ROOM AIR AND DENIES PAIN. PT MIDLINE REMOVED AND COMPRESSION BANDAGE APPLIED. PT AGUILAR D/C PER MD- SNF AWARE. PT DECLINED BRIEFING ON SO D/C PACKET AND REQUESTING I GIVE TO SNF NURSE. PT WITH ALL BELONGINGS AND DOCUMENT SIGNED BY RNX2. SKIN PHOTOGRAPHS COMPLETED. ALL NURSE DUTIES ATTENDED TO AND PT IS WITHOUT CONCERN OR COMPLAINT. PT ESCORTED WITH STRETCH BY EMT.
[2017-11-03 04:13] LABS: *SPE A/G RATIO 0.9 (0.7-1.7); *SPE ALBUMIN 2.8 g/dL (2.9-4.4); *SPE ALPHA-1-GLOBULIN 0.4 g/dL (0.0-0.4); *SPE M-SPIKE Not Observed g/dL (Not Observed); *SPEGAMMA GLOBULIN 0.6 g/dL (0.4-1.8)
== END 2017-11-01 16:45 | DRG 871 ==
LOC: ER 12:10 → ICU 15:16 → TELE1 10-24 17:12 → MEDSG1 10-25 10:39 → MEDSG2 10-29 20:32
PROVIDERS: ADMIT Internal Medicine; ATTEND Internal Medicine
PROC: 5A09457 Assistance with Respiratory Ventilation, 24-96 Consecutive Hours, Continuous Positive Airway Pressure (ICD-10-PCS; principal; 2017-10-19)
PROC: 5A09357 Assistance with Respiratory Ventilation, Less than 24 Consecutive Hours, Continuous Positive Airway Pressure (ICD-10-PCS; 2017-10-19)
PROC: 05H533Z Insertion of Infusion Device into Right Subclavian Vein, Percutaneous Approach (ICD-10-PCS; 2017-10-20)
DX: A41.9 Sepsis, unspecified organism (principal); I21.4 Non-ST elevation (NSTEMI) myocardial infarction; J96.01 Acute respiratory failure with hypoxia; E87.3 Alkalosis; D68.59 Other primary thrombophilia; I50.33 Acute on chronic diastolic (congestive) heart failure; J18.9 Pneumonia, unspecified organism; G93.41 Metabolic encephalopathy; F33.2 Major depressive disorder, recurrent severe without psychotic features; E11.22 Type 2 diabetes mellitus with diabetic chronic kidney disease; R53.2 Functional quadriplegia; I13.0 Hypertensive heart and chronic kidney disease with heart failure and stage 1 through stage 4 chronic kidney disease, or unspecified chronic kidney disease; I47.1 Supraventricular tachycardia; J44.0 Chronic obstructive pulmonary disease with (acute) lower respiratory infection; J44.1 Chronic obstructive pulmonary disease with (acute) exacerbation; J98.11 Atelectasis; W06.XXXA Fall from bed, initial encounter; I48.0 Paroxysmal atrial fibrillation; S09.90XA Unspecified injury of head, initial encounter; F41.9 Anxiety disorder, unspecified; Y92.230 Patient room in hospital as the place of occurrence of the external cause; I25.10 Atherosclerotic heart disease of native coronary artery without angina pectoris; Z95.5 Presence of coronary angioplasty implant and graft; Z79.4 Long term (current) use of insulin; Z79.82 Long term (current) use of aspirin; Z88.2 Allergy status to sulfonamides; E66.9 Obesity, unspecified; Z68.29 Body mass index [BMI] 29.0-29.9, adult; Z91.14 Patient's other noncompliance with medication regimen; E03.9 Hypothyroidism, unspecified; F20.9 Schizophrenia, unspecified; Z87.01 Personal history of pneumonia (recurrent); E78.5 Hyperlipidemia, unspecified; D63.8 Anemia in other chronic diseases classified elsewhere; I70.0 Atherosclerosis of aorta; Z83.3 Family history of diabetes mellitus; Z79.899 Other long term (current) drug therapy; N18.3 Chronic kidney disease, stage 3 (moderate); K21.9 Gastro-esophageal reflux disease without esophagitis
CPT/HCPCS: 36415; 36569; 36600; 70450-TC; 71045-TC; 73030-TC; 80048-TC; 80053-TC; 80061-TC; 80076-TC; 80202-TC; 81000-TC; 82150-TC; 82553-TC; 82803-TC; 82962-TC; 83605-TC; 83735-TC; 83880; 84100-TC; 84155; 84165; 84484-TC; 85025-TC; 85610-TC; 85652-TC; 85730-TC; 86140-TC; 87040-TC; 87081-TC; 87086-TC; 93307-TC; 93970-TC; 94799-TC; 99082-TC; A4216; A4606; A6403; J1644; J1815; J1940; J2060; J2270; J2543; J3370; J3490; J7030; J7050; J7060; Z7610

== ENCOUNTER 2017-12-21 15:39 | Inpatient (IN) | payer MEDICARE, BC ==
[~2017-12-21] VITALS: Ht 167.6 cm; Wt 65.4 kg
[~2017-12-21 15:39] MED LIST changes: -ASPI-605 PO; +BLOO-668 IN; +BUPR100T6 PO; -CLON2TAB PO; -CLOP75TA15 PO; -FURO-145 PO; -GLIM1TAB2 PO; -INSU100V3 SQ; -KCL 10 MEQ PO; +METO5TAB87 PO; -OMEP20CA10 PO; +PANT40TA4 PO; +POTA20TA83 PO; -SERT25TA PO; -TRAZ-147 PO; -ZIPR60CA2 PO; -ZOLP10TA2 PO
--- NOTE | 2017-12-21 15:55 | NUR ---
PT BBRA FROM FACILITY. PER EMS, "PT WAS FOUND ON THE FLOOR WITH ANOTHER PT ON TOP WRESTLING". PT IS AAOX3. RESP EVEN AND UNLABORED. VSS. NO S/S OF ACUTE DISTRESS NOTED. PT GOWNED AND PLACED ON MONITOR. PT SAFETY AND COMOFRT MEASURES IN PLACE. BEDSIDE FOR EVAL.
--- NOTE | 2017-12-21 15:58 | NUR ---
EMT BEDSIDE FOR EKG
--- NOTE | 2017-12-21 16:03 | NUR ---
HYDROTECHNICAL SPECIALIST BEDSIDE FOR X-RAY
[2017-12-21 16:13] LABS: BASOPHILS # (AUTO) 0.2 /CMM (0.0-0.2); BASOPHILS % (AUTO) 1.5 % (0.0-2.0); EOSINOPHILS % (AUTO) 0.5 % (0.0-6.0); HEMATOCRIT 38 % (39-51); HEMOGLOBIN 12.6 g/dL (13.5-17.5); LYMPHOCYTES # (AUTO) 0.8 /CMM (0.8-4.8); LYMPHOCYTES % (AUTO) 5.1 % (20.0-44.0); MEAN CORPUSCULAR HGB CONC 33 g/dl (31.0-36.0); MEAN CORPUSCULAR VOLUME 81 fL (80-96); MONOCYTES # (AUTO) 1.1 /CMM (0.1-1.30); NEUTROPHILS % (AUTO) 85.9 % (43.0-81.0); PLATELET COUNT (AUTO) 257 /CMM (150-450); RDW COEFFICIENT OF VARIATION 17.2 (11.5-15.0); RED BLOOD CELL COUNT(AUTO) 4.71 MIL/uL (4.5-6.0); WHITE BLOOD COUNT (AUTO) 16.2 K/uL (4.3-11.0)
[2017-12-21 16:28] LABS: ALANINE AMINOTRANSFERASE 32 U/L (12-78); ALBUMIN 3.1 g/dL (3.4-5.0); ALKALINE PHOSPHATASE 75 U/L (46-116); ASPARTATE AMINOTRANSFERASE 12 U/L (15-37); BILIRUBIN,DIRECT 0.2 mg/dL (0.0-0.2); BILIRUBIN,TOTAL 0.5 mg/dL (0.2-1.0); CALCIUM, SERUM 9.4 mg/dL (8.5-10.1); CARBON DIOXIDE 31 mmol/L (21-32); CHLORIDE 98 mmol/L (98-107); CREATININE 1.4 mg/dL (0.6-1.3); GLUCOSE 220 mg/dL (74-106); POTASSIUM 4.4 mmol/L (3.5-5.1); SODIUM SERUM 134 mmol/L (136-145); TOTAL PROTEIN, SERUM 6.4 g/dL (6.4-8.2); UREA NITROGEN, BLOOD 31 mg/dL (7-18)
[2017-12-21 16:30] LABS: TROPONIN I 0.183 ng/mL (0.00-0.056)
[2017-12-21 16:54] LABS: INR 0.93 (0.85-1.15)
--- NOTE | 2017-12-21 17:09 | NUR ---
Patient is resting comfortably in bed with eyes closed. Easily aroused. VSS
[2017-12-21 17:16] LABS: APPEARANCE,URINE Clear (CLEAR); BILIRUBIN,URINE Negative (NEGATIVE); BLOOD, URINE Negative Ery/uL (NEGATIVE); COLOR,URINE Yellow (YELLOW); KETONES,URINE Negative (NEGATIVE); LEUKOCYTE ESTERASE ,URINE Negative (NEGATIVE); NITRITE, URINE Negative (NEGATIVE); PROTEIN,URINE Negative (NEGATIVE); UGLUCOSE Negative (NEGATIVE); UROBILINOGEN,URINE 0.2 EU/dL (0.2)
[2017-12-21] MEDS ORDERED: ASPIRIN 325 MG TABLET PO ONE (17:30)
[2017-12-21] MEDS ORDERED: ASPIRIN 325 MG TABLET ONE (17:34)
--- NOTE | 2017-12-21 17:36 | NUR ---
PAGED EPIC FOR PANEL
[2017-12-21] MEDS ORDERED: ZIPR60CA2 PO (17:53)
[2017-12-21] MEDS ORDERED: HALO2ORA3 SL (17:53)
[2017-12-21] MEDS ORDERED: INSU100V3 SQ (17:53)
[2017-12-21] MEDS ORDERED: CLON2TAB11 PO (17:53)
[2017-12-21] MEDS ORDERED: ACET650S11 RC (17:57)
[2017-12-21] MEDS ORDERED: MORP10SO2 SL (17:57)
[2017-12-21] MEDS ORDERED: LORA2ORA5 SL (17:57)
[2017-12-21] MEDS ORDERED: ONDA4TAB8 SL (17:57)
[2017-12-21] MEDS ORDERED: HYOS-17 SL (17:57)
--- NOTE | 2017-12-21 18:29 | NUR ---
REPORT GIVEN TO YUMIKO CARROLL FOR DANIELA.
--- NOTE | 2017-12-21 18:40 | NUR ---
tele kitchen and bath designer: notes brought pt via gurney and transferred pt to bed with 3 staff. kept comfortable. diaper changed. oriented to room and surroundings. tele provided [phone] with pac. call light within reach. will endorse to next shift accordingly.
[2017-12-21 19:00] VITALS: BP 116/74
[2017-12-21] MEDS ORDERED: MAGNESIUM HYDROXIDE 30 ML UDC PO PRN (19:30)
[2017-12-21] MEDS ORDERED: ACETAMINOPHEN 325 MG TABLET PO PRN (19:30)
[2017-12-21] MEDS ORDERED: ONDANSETRON HCL/PF 4 MG/2 ML VIAL IVP PRN (19:30)
[2017-12-21] MEDS ORDERED: Z GUARD REMEDY 2 OZ OINT TP PRN (19:30)
[2017-12-21] MEDS ORDERED: DEXTROSE 50%-WATER 50 ML DISP.SYRIN IV PRN (19:30)
[2017-12-21] MEDS ORDERED: MAG HYDROX/AL HYDROX/SIMETH 30 ML UDC PO PRN (19:30)
[2017-12-21] MEDS ORDERED: ZOLPIDEM TARTRATE 5 MG TABLET PO PRN (19:30)
[2017-12-21 20:00] VITALS: BP 116/74
--- NOTE | 2017-12-21 20:00 | NUR ---
RN NOTES ADMITTED PT FROM ER WITH PRIMARY DIAGNOSIS OF AMS UNDER NAI RN ELIGIBILITY. PT ALERT AND ORIENTED X1-2 WITH PERIODS OF CONFUSION. PT DENIES PAIN, NAUSEA AND VOMITING AT THIS TIME. SKIN AND BODY ASSESSMENT DONE, SKIN CLEAR AND INTACT. ALL ORDERS NOTED AND CARRIED OUT. FALL PRECAUTION OBSERVED. WILL CONTINUE TO MONITOR PT.
[2017-12-21] MEDS: IV NS 0.9% 1,000 ML IV PRN (20:34)
[2017-12-21] MEDS: ENOXAPARIN SODIUM 40 MG/0.4 ML DISP.SYRIN SQ SCH (21:32)
[2017-12-21] MEDS: BLOOD SUGAR DIAGNOSTIC 1 EACH STRIP IN SCH (21:33)
[2017-12-21] MEDS: INSULIN REGULAR, HUMAN 100 UNIT/ML 3 ML VIAL SQ PRN (21:34)
[2017-12-21] MEDS ORDERED: methylPREDNISolone SOD SUCC 125 MG/2ML VIAL IV ONE (22:30)
[2017-12-21] MEDS ORDERED: IPRATROPIUM NEB FS 0.5 MG/2.5 ML AMPUL.NEB NEB PRN (22:30)
[2017-12-21] MEDS ORDERED: ALBUTEROL FS 2.5 MG/0.5 ML VIAL.NEB NEB PRN (22:30)
[2017-12-21] MEDS: ALBUTEROL FS 2.5 MG/0.5 ML VIAL.NEB NEB SCH (22:45)
[2017-12-21] MEDS: IPRATROPIUM NEB FS 0.5 MG/2.5 ML AMPUL.NEB NEB SCH (22:45)
[2017-12-22] MEDS: METOPROLOL TARTRATE 50 MG TABLET PO SCH ×3 (01:51→21:47)
--- NOTE | 2017-12-22 01:51 | NUR ---
RN NOTES EKG DONE WHICH READS SINUS TACHYCARDIA WITH 1ST DEGREE AVB WITH PREMATURE SUPRAVENTRICULAR COMPLEXES. WITH HEART RATE THAT GOES UP TO 130'S. NAI ORNELAS MADE METOPROLOL 50 MG TAB GIVEN PO ORDERED. WILL CONTINUE TO MONITOR PT.
[2017-12-22 04:00] VITALS: BP 124/72
[2017-12-22 05:19] LABS: BASOPHILS % (AUTO) 0.1 % (0.0-2.0); HEMATOCRIT 38 % (39-51); HEMOGLOBIN 12.6 g/dL (13.5-17.5); LYMPHOCYTES # (AUTO) 0.7 /CMM (0.8-4.8); MEAN CORPUSCULAR HGB CONC 33 g/dl (31.0-36.0); MEAN CORPUSCULAR VOLUME 83 fL (80-96); MONOCYTES # (AUTO) 0.2 /CMM (0.1-1.30); MONOCYTES % (AUTO) 1.4 % (2.0-12.0); NEUTROPHILS # (AUTO) 12.6 /CMM (1.8-8.9); NEUTROPHILS % (AUTO) 93.5 % (43.0-81.0); PLATELET COUNT (AUTO) 247 /CMM (150-450); RDW COEFFICIENT OF VARIATION 18.6 (11.5-15.0); RED BLOOD CELL COUNT(AUTO) 4.66 MIL/uL (4.5-6.0); WHITE BLOOD COUNT (AUTO) 13.5 K/uL (4.3-11.0)
[2017-12-22 05:39] LABS: CARBON DIOXIDE 22 mmol/L (21-32); CHLORIDE 97 mmol/L (98-107); SODIUM SERUM 131 mmol/L (136-145)
[2017-12-22 05:40] LABS: CALCIUM, SERUM 9.1 mg/dL (8.5-10.1); CREATININE 1.5 mg/dL (0.6-1.3); GLUCOSE 193 mg/dL (74-106); MAGNESIUM 2.3 mg/dL (1.8-2.4); UREA NITROGEN, BLOOD 30 mg/dL (7-18)
[2017-12-22 05:51] LABS: CHOLESTEROL 234 mg/dL (<200); HDL CHOLESTEROL 74 mg/dL (40-60); LDL 154 mg/dL (0-99); TRIGLYCERIDES 92 mg/dL (30-150)
[2017-12-22 06:15] LABS: LYMPHOCYTES % (MANUAL) 5 % (16-48); MONOCYTES % (MANUAL) 2 % (0-11.0); NEUTROPHILS % (MANUAL) 93 (42-76)
[2017-12-22] MEDS: BLOOD SUGAR DIAGNOSTIC 1 EACH STRIP IN SCH ×4 (06:44→21:47)
[2017-12-22] MEDS: INSULIN REGULAR, HUMAN 100 UNIT/ML 3 ML VIAL SQ PRN ×4 (06:46→21:46)
--- NOTE | 2017-12-22 07:02 | NUR ---
RN NOTES PT SLEPT ON AND OFF OVERNIGHT. VITAL SIGNS STABLE, TELE MONITOR READS SINUS RHYTHM WITH PAC'S AT 79. ON 2LPM O2 VIA NC TOLERATED WELL. DENIES ANY PAIN, NAUSEA AND VOMITING. VOIDING WELL, WITH GOOD OUTPUT. TURNS SELF WITH MIN ASSIST. SAFETY MEASURES AND FALL PRECAUTION OBSERVED. ALL NEEDS ATTENDED. WILL ENDORSE TO MORNING RN FOR CONTINUITY OF CARE.
--- NOTE | 2017-12-22 07:50 | NUR ---
ms rn received on bed, awake,forgetful, repeating words costantly, not in any form of distress, respirations even and unlabored, no sob ntoed, lungs are clear,abdoemn soft,positive bowel sounds, denies pain at this time, will monitor patient's condition.
[2017-12-22] MEDS: ALBUTEROL FS 2.5 MG/0.5 ML VIAL.NEB NEB SCH ×4 (08:54→19:46)
[2017-12-22] MEDS: IPRATROPIUM NEB FS 0.5 MG/2.5 ML AMPUL.NEB NEB SCH ×4 (08:54→19:45)
[2017-12-22 09:04] VITALS: BP 102/68
--- NOTE | 2017-12-22 09:30 | NUR ---
ms denny breakfast served,due meds given,tolerated well.
[2017-12-22] MEDS: LEVOTHYROXINE SODIUM 50 MCG TABLET PO SCH (09:37)
[2017-12-22] MEDS: HYDROCODONE/APAP 5/325MG 1 EACH TABLET PO PRN (11:01)
--- NOTE | 2017-12-22 11:20 | NUR ---
ms rn patient getting out of bed, alarm set up, fall risk precaution observed, charge notified that patient needs a sitter, will monitor patient.
--- NOTE | 2017-12-22 12:00 | NUR ---
ms rn was seen by kathy osei/ attila turner and carried out.
[2017-12-22] MEDS: LISINOPRIL (5MG) 5 MG TABLET PO SCH (12:54)
[2017-12-22 15:48] VITALS: BP 126/75
--- NOTE | 2017-12-22 16:00 | NUR ---
ms rn ct head done, awaiting for result.
--- NOTE | 2017-12-22 18:38 | NUR ---
ms rn on bed, no distress noted, will endorse to shift commander for tyron.
[2017-12-22 20:15] VITALS: BP 112/63
--- NOTE | 2017-12-22 20:15 | NUR ---
RECEIVED PT FROM THIRD FLOOR IN STABLE CONDITION. A, OX2. BREATHING EVENLY. NO SOB. NAD. SKIN WARM AND DRY. NO C/O PAIN OR DISCOMFORT . BED LOW LOCKED. CALL LIGHT WITHIN REACH. WILL CONT TO MONITOR ,
[2017-12-22 20:30] VITALS: BP 112/63
[2017-12-22] MEDS: ENOXAPARIN SODIUM 40 MG/0.4 ML DISP.SYRIN SQ SCH (21:45)
[2017-12-23 06:31] LABS: BASOPHILS # (AUTO) 0.1 /CMM (0.0-0.2); BASOPHILS % (AUTO) 0.4 % (0.0-2.0); EOSINOPHILS % (AUTO) 1.2 % (0.0-6.0); HEMATOCRIT 36 % (39-51); LYMPHOCYTES # (AUTO) 2.7 /CMM (0.8-4.8); LYMPHOCYTES % (AUTO) 18.2 % (20.0-44.0); MEAN CORPUSCULAR HGB CONC 34 g/dl (31.0-36.0); MEAN CORPUSCULAR VOLUME 81 fL (80-96); MONOCYTES # (AUTO) 1.7 /CMM (0.1-1.30); MONOCYTES % (AUTO) 11.6 % (2.0-12.0); NEUTROPHILS # (AUTO) 10.2 /CMM (1.8-8.9); NEUTROPHILS % (AUTO) 68.6 % (43.0-81.0); PLATELET COUNT (AUTO) 220 /CMM (150-450); RDW COEFFICIENT OF VARIATION 17.3 (11.5-15.0); RED BLOOD CELL COUNT(AUTO) 4.36 MIL/uL (4.5-6.0); WHITE BLOOD COUNT (AUTO) 14.9 K/uL (4.3-11.0)
--- NOTE | 2017-12-23 06:34 | NUR ---
PT IN BED DOZING INTERMITTENTLY. W/ EPISODES OF AGITATION THROUGH THE NIGHT BUT NO ACUTE EVENT. BREATHING EVENLY. NO SOB. NO C/O PAIN OR DISCOMFORT . ASSISTED W ADLS . BED LOW LOCKED CALL LIGHT WITHIN REACH . WILL CONT TO MONITOR AND WILL ENDORSE TO AM SHIFT FOR DANIELA
[2017-12-23 06:41] LABS: ALANINE AMINOTRANSFERASE 65 U/L (12-78); ALBUMIN 2.8 g/dL (3.4-5.0); ALKALINE PHOSPHATASE 97 U/L (46-116); ASPARTATE AMINOTRANSFERASE 24 U/L (15-37); BILIRUBIN,TOTAL 0.6 mg/dL (0.2-1.0); CALCIUM, SERUM 8.6 mg/dL (8.5-10.1); CARBON DIOXIDE 28 mmol/L (21-32); CHLORIDE 100 mmol/L (98-107); CREATININE 1.2 mg/dL (0.6-1.3); GLUCOSE 124 mg/dL (74-106); POTASSIUM 4.3 mmol/L (3.5-5.1); SODIUM SERUM 134 mmol/L (136-145); TOTAL PROTEIN, SERUM 5.8 g/dL (6.4-8.2); UREA NITROGEN, BLOOD 33 mg/dL (7-18)
[2017-12-23 06:42] LABS: TROPONIN I 0.161 ng/mL (0.00-0.056)
[2017-12-23] MEDS: BLOOD SUGAR DIAGNOSTIC 1 EACH STRIP IN SCH ×4 (06:44→21:51)
[2017-12-23 06:50] LABS: MAGNESIUM 2.1 mg/dL (1.8-2.4)
--- NOTE | 2017-12-23 07:15 | NUR ---
RN NOTES: PATIENT RESTING IN BED. NONLABORED BREATHING NOTED. PATIENT AOX2. IV SITE ON LEFT AC #20 PATENT AND INTACT. NO FACIAL GRIMACING NOTED. PATIENT DENYING CHEST PAIN. BED IN LOWEST LOCKED POSITION AND CALL LIGHT WITHIN REACH. WILL CONTINUE TO MONITOR
[2017-12-23] MEDS: ALBUTEROL FS 2.5 MG/0.5 ML VIAL.NEB NEB SCH ×4 (07:33→21:10)
[2017-12-23] MEDS: IPRATROPIUM NEB FS 0.5 MG/2.5 ML AMPUL.NEB NEB SCH ×4 (07:33→21:09)
[2017-12-23 08:00] VITALS: BP 121/79
[2017-12-23 08:19] VITALS: BP 120/76
[2017-12-23] MEDS: LEVOTHYROXINE SODIUM 50 MCG TABLET PO SCH (08:19)
[2017-12-23] MEDS: HYDROCODONE/APAP 5/325MG 1 EACH TABLET PO PRN ×2 (08:19→13:03)
[2017-12-23] MEDS: LISINOPRIL (5MG) 5 MG TABLET PO SCH (09:00)
[2017-12-23] MEDS: METOPROLOL TARTRATE 50 MG TABLET PO SCH ×2 (09:00→20:58)
[2017-12-23] MEDS: INSULIN REGULAR, HUMAN 100 UNIT/ML 3 ML VIAL SQ PRN ×3 (12:34→22:00)
--- NOTE | 2017-12-23 12:38 | NUR ---
RN NOTES: LEFT A VOICEMAIL FOR ULTRASOUND REGARDING ECHO ORDER FAXED FACESHEET TO [facility] FOR A PSYCHO CONSULT
[2017-12-23 15:22] LABS: APPEARANCE,URINE CLEAR (CLEAR); BILIRUBIN,URINE NEGATIVE (NEGATIVE); BLOOD, URINE NEGATIVE Ery/uL (NEGATIVE); COLOR,URINE YELLOW (YELLOW); KETONES,URINE NEGATIVE (NEGATIVE); LEUKOCYTE ESTERASE ,URINE NEGATIVE (NEGATIVE); NITRITE, URINE NEGATIVE (NEGATIVE); PH,URINE 5.5 (5.0-8.0); PROTEIN,URINE NEGATIVE (NEGATIVE); UGLUCOSE NEGATIVE (NEGATIVE); UROBILINOGEN,URINE 0.2 EU/dL (0.2)
[2017-12-23 16:00] VITALS: BP 138/58
--- NOTE | 2017-12-23 18:25 | NUR ---
RN NOTES: CALLED [facility] AGAIN. CONSULTATION PENDING. PATIENT TO BE SEEN BY DR MORGAN
--- NOTE | 2017-12-23 19:30 | NUR ---
RN NOTES RECEIVED PT. AWAKE ON BED, A/OX2, MANIPULATIVE, NEEDY, DENIES PAIN, NO SOB, KATE L;IGHT WITCASAIN REACH, SIDERAILSUPX2, CONTINUE TO MONITOR
--- NOTE | 2017-12-23 19:31 | NUR ---
RN CLOSING NOTES: PATIENT RESTING IN BED. NONLABORED BREATHING NOTED ON 2 L . NO SIGNS OF DISTRESS NOTED. PATIENT STABLE DURING SHIFT. DENIED CHEST PAIN DURING SHIFT. TOLERATED DIET WELL WITH NO NAUSEA AND NO VOMITING NOTED. IV SITE ON LEFT AC PATENT AND INTACT. NO AGITATION NOTED. SAFETY CHECKS PER PROTOCOL. PATIENT KEPT CLEAN AND DRY, TURNED AND REPOSITIONED EVERY 2 HOURS. OFFERED PATIENT SLING PER OSMIN MAYO . REFUSING. BENEFITS AND RISKS EXPLAINED. BED IN LOWEST LOCKED POSITION. CALL LIGHT WITHIN REACH. ENDORSED TO NEXT SHIFT
[2017-12-23 20:00] VITALS: BP 122/65
[2017-12-23] MEDS: ENOXAPARIN SODIUM 40 MG/0.4 ML DISP.SYRIN SQ SCH (20:57)
[2017-12-23] MEDS: IV NS 0.9% 1,000 ML IV PRN (20:58)
--- NOTE | 2017-12-24 02:40 | NUR ---
RN NOTES PT. SO ANXIOUS PULLED OU HIS IV AND WANTS TO GET OUT.. SPOKE TO DR. LLANES AND GOT AN ORDER OF ATIVAN 1MG PO PRN, ORDER NOTED AND CARRIED OUT
--- NOTE | 2017-12-24 02:45 | NUR ---
RN NOTES PT IS SO ANXIOUS- ATIVAN 1MG PO GIVEN ORDERED, V/S STABLE
[2017-12-24] MEDS: LORAZEPAM 1 MG TABLET PO PRN ×3 (02:46→22:18)
[2017-12-24] MEDS: BLOOD SUGAR DIAGNOSTIC 1 EACH STRIP IN SCH ×4 (06:52→22:10)
[2017-12-24] MEDS: INSULIN REGULAR, HUMAN 100 UNIT/ML 3 ML VIAL SQ PRN ×2 (06:55→17:34)
--- NOTE | 2017-12-24 07:00 | NUR ---
RN NOTES AWAKE, MORNING CARE RENDERED, REFUSED TO HAVE AN IV ACCESS, DENIES PAIN, NO SOB, CALL LIGHT WITHIN REACH, SIDERAILSUPX2, PT NEEDS ATTENDED
[2017-12-24] MEDS: ALBUTEROL FS 2.5 MG/0.5 ML VIAL.NEB NEB SCH ×4 (07:11→19:54)
[2017-12-24] MEDS: IPRATROPIUM NEB FS 0.5 MG/2.5 ML AMPUL.NEB NEB SCH ×4 (07:11→19:54)
--- NOTE | 2017-12-24 07:30 | NUR ---
MS/RN Patient received Patient received from night court magistrate. Sitter at bedside for safety. All needs attended, will continue to monitor and ensure safety.
[2017-12-24 08:00] VITALS: BP_SYST 113; BP_SYST 141; BP_DIAS 65; BP_DIAS 68
[2017-12-24] MEDS: LEVOTHYROXINE SODIUM 50 MCG TABLET PO SCH (08:16)
[2017-12-24] MEDS: HYDROCODONE/APAP 5/325MG 1 EACH TABLET PO PRN ×2 (08:16→15:17)
[2017-12-24] MEDS: METOPROLOL TARTRATE 50 MG TABLET PO SCH ×2 (08:16→21:24)
[2017-12-24] MEDS: LISINOPRIL (5MG) 5 MG TABLET PO SCH (08:16)
--- NOTE | 2017-12-24 09:00 | NUR ---
MS/RN Medications All medications administered as ordered.
--- NOTE | 2017-12-24 09:30 | NUR ---
MS/RN S/B Dr Powell Seen by Dr Powell - patient is poor candidate for cardiac catheter, consider CTCA if mental status improves. Discharge planning per IM.
--- NOTE | 2017-12-24 10:02 | NUR ---
MS/RN Morning care Full bed bath provided to patient, heels off loaded.
--- NOTE | 2017-12-24 11:30 | NUR ---
MS/RN S/B Dr Macedo Seen by Dr Macedo - no new orders.
--- NOTE | 2017-12-24 12:00 | NUR ---
MS/RN Blood sugar Blood sugar at noon 113, no coverage needed.
--- NOTE | 2017-12-24 13:26 | NUR ---
MS/RN S/B Dr Ahmadi Seen by Dr Ahmadi - reorient as necessary, PT/OT.
[2017-12-24 16:00] VITALS: BP 114/58
[2017-12-24] MEDS: DIVALPROEX SODIUM 125 MG CAP.SPRINK PO SCH ×2 (16:40→21:24)
[2017-12-24] MEDS: QUETIAPINE FUMARATE 25 MG TABLET PO SCH (16:41)
[2017-12-24] MEDS ORDERED: HYDROCODONE/APAP 10/325MG 1 EA TABLET PO PRN (17:00)
--- NOTE | 2017-12-24 17:00 | NUR ---
MS/RN Blood sugar Blood sugar at 5p 166, three units insulin administered as per sliding scale.
--- NOTE | 2017-12-24 17:15 | NUR ---
MS/RN S/B Dr Calderon Seen by Dr Calderon - lidoderm patch 5% ordered to be applied to left shoulder and changed every 24 hours. Scio changed to 10/325mg.
[2017-12-24] MEDS: LIDOCAINE 5% (PATCH) 1 EA PATCH TP SCH (17:35)
--- NOTE | 2017-12-24 17:55 | NUR ---
MS/RN S/B Anthony Ta ROLL UP MACHINE OPERATOR Seen by ROLL UP MACHINE OPERATOR - patient to be discharged to board and care tomorrow morning. retail sales manager made aware.
--- NOTE | 2017-12-24 19:30 | NUR ---
RN NOTES RECEIVED PT. AWAKE4 ON BED, A/OX2, SITTER AT BEDSIDE,CALM AND COOPERATIVE AT THIS TRIME, DENIES PAIN, NO SOB, CALL LIGHT WITHIN REACH, SIDERAILSUPX2, WILL CONTINUE TO MONITOR
[2017-12-24 20:00] VITALS: BP 116/70
[2017-12-24] MEDS: ENOXAPARIN SODIUM 40 MG/0.4 ML DISP.SYRIN SQ SCH (21:25)
--- NOTE | 2017-12-24 21:40 | NUR ---
RN NOTES PT. WAS TRANSFERRED TO [facility] IN ROOM 314-1, GAVE BEDSIDE REPORT TO BHARATH, PT IS WITH A SITTER, DENIES PAIN, NO SOB, IN STABLE CONDITION
--- NOTE | 2017-12-24 21:50 | NUR ---
MS RN NOTES RECEIVED PT FROM MS 2, ENDORSED BY JERICHO RDZ. PT IS AWAKE ON BED, A/OX2, SITTER AT BEDSIDE, CALM AND COOPERATIVE AT THIS TIME. NO SOB NOR ACUTE DISTRESS NOTED. DENIES ANY PAIN OR DISCOMFORT AT THIS TIME. SAFETY PRECAUTIONS OBSERVED. CALL LIGHT WITHIN REACH, SIDERAILSUPX2, WILL CONTINUE TO MONITOR
[2017-12-24 22:00] VITALS: BP 118/80
--- NOTE | 2017-12-25 05:00 | NUR ---
PT RESTLESS AT THIS TIME, TRYING TO GET OUT OF THE BED, FREQUENT REORIENTATION DONE. PT WITH SITTER FOR SAFETY. MORNING CARE DONE. NO S/S OF HYPO/ HYPERGLYCEMIA NOTED. CALL LIGHT WITHIN REACH. WILL CONT TO MONITOR.
[2017-12-25] MEDS: BLOOD SUGAR DIAGNOSTIC 1 EACH STRIP IN SCH ×3 (05:49→17:18)
--- NOTE | 2017-12-25 06:34 | NUR ---
MS RN NOTES PT IN BED, RESTING COMFORTABLY AT THIS TIME, AROUSES EASILY. A/OX2, VERBALLY RESPONSIVE. SITTER AT BEDSIDE. NO SOB NOR ACUTE DISTRESS NOTED. DENIES ANY PAIN OR DISCOMFORT AT THIS TIME. SAFETY PRECAUTIONS OBSERVED. CALL LIGHT WITHIN REACH, SIDERAILSUPX2, WILL ENDORSE TO NEXT SHIFT FOR DANIELA.
--- NOTE | 2017-12-25 07:30 | NUR ---
RN MS NOTES PT IN BED, ASLEEP, EASY TO AROUSE, NO SIGN OF PAIN OR DISTRESS, CALL LIGHT WITHIN REACH, SITTER AT BEDSIDE, SAFETY PRECAUTIONS OBSERVED.
[2017-12-25 08:00] VITALS: BP 115/69
[2017-12-25] MEDS: IPRATROPIUM NEB FS 0.5 MG/2.5 ML AMPUL.NEB NEB SCH ×3 (08:18→15:19)
[2017-12-25] MEDS: ALBUTEROL FS 2.5 MG/0.5 ML VIAL.NEB NEB SCH ×3 (08:18→15:19)
[2017-12-25] MEDS: DIVALPROEX SODIUM 125 MG CAP.SPRINK PO SCH (08:49)
[2017-12-25] MEDS: LEVOTHYROXINE SODIUM 50 MCG TABLET PO SCH (08:49)
[2017-12-25] MEDS: QUETIAPINE FUMARATE 25 MG TABLET PO SCH ×2 (08:49→17:18)
[2017-12-25] MEDS: METOPROLOL TARTRATE 50 MG TABLET PO SCH (09:00)
[2017-12-25] MEDS: LISINOPRIL (5MG) 5 MG TABLET PO SCH (09:00)
--- NOTE | 2017-12-25 13:00 | NUR ---
RN MS NOTES PT IN BED, AWAKE, ALERT, ABLE TO MAKE NEEDS KNOWN, CALL LIGHT WITHIN REACH, ASSISTED IN TURNING AND REPOSITIONING, CALL LIGHT WITHIN REACH, SITTER AT BEDSIDE, KEPT WARM AND COMFORTABLE IN BED.
[2017-12-25 16:00] VITALS: BP 108/65
[2017-12-25] MEDS: LIDOCAINE 5% (PATCH) 1 EA PATCH TP SCH (17:18)
[2017-12-25] MEDS: HYDROCODONE/APAP 5/325MG 1 EACH TABLET PO PRN (18:35)
--- NOTE | 2017-12-25 18:40 | NUR ---
RN MS NOTES PT IN BED, AWAKE, ALERT AND ORIENTED, WITH COMPLAINT OF LEFT SHOULDER PAIN, PAIN MED GIVEN ORDERED, NOT IN DISTRESS, DISCHARGE AND MEDICATION INSTRUCTIONS PROVIDED TO PT, VERBALIZED UNDERSTANDING, BELONGINGS ACCOUNTED FOR, ARIE BOARD AND CARE AWARE OF PT'S TRANSFER, SCHEDULE FOR FOLLOW UP IN [facility] GIVEN TO PT, PICKED UP BY 2 AMBULANCE PERSONNEL, LEFT VIA GUERNEY IN STABLE CONDITION.
== END 2017-12-25 18:39 | disposition home or self-care (01) | DRG 280 ==
LOC: ER 15:42 → TELE 18:29 → MED 12-22 08:00 → MEDSG2 12-22 20:37 → MED 12-24 21:38
PROVIDERS: ADMIT Nurse Practitioner Acute Care; ATTEND Nurse Practitioner Acute Care
DX: I21.A1 Myocardial infarction type 2 (principal); N17.0 Acute kidney failure with tubular necrosis; G92 Toxic encephalopathy; E44.0 Moderate protein-calorie malnutrition; I50.33 Acute on chronic diastolic (congestive) heart failure; E11.22 Type 2 diabetes mellitus with diabetic chronic kidney disease; E11.65 Type 2 diabetes mellitus with hyperglycemia; I48.91 Unspecified atrial fibrillation; E88.09 Other disorders of plasma-protein metabolism, not elsewhere classified; E87.1 Hypo-osmolality and hyponatremia; J44.1 Chronic obstructive pulmonary disease with (acute) exacerbation; I13.0 Hypertensive heart and chronic kidney disease with heart failure and stage 1 through stage 4 chronic kidney disease, or unspecified chronic kidney disease; J98.11 Atelectasis; D72.829 Elevated white blood cell count, unspecified; N18.9 Chronic kidney disease, unspecified; E03.9 Hypothyroidism, unspecified; E66.9 Obesity, unspecified; E78.5 Hyperlipidemia, unspecified; I25.10 Atherosclerotic heart disease of native coronary artery without angina pectoris; K21.9 Gastro-esophageal reflux disease without esophagitis; Z98.61 Coronary angioplasty status; G89.29 Other chronic pain; Z88.0 Allergy status to penicillin; M19.012 Primary osteoarthritis, left shoulder; F20.9 Schizophrenia, unspecified; F29 Unspecified psychosis not due to a substance or known physiological condition; F39 Unspecified mood [affective] disorder; Z68.23 Body mass index [BMI] 23.0-23.9, adult; Z79.4 Long term (current) use of insulin
CPT/HCPCS: 36415; 70450-TC; 71045-TC; 73030-TC; 80048-TC; 80053-TC; 80061-TC; 80076-TC; 81000-TC; 82570-TC; 82962-TC; 83735-TC; 84100-TC; 84300-TC; 84484-TC; 85025-TC; 85730-TC; 87081-TC; 87086-TC; 94799-TC; A4565; A4606; J1650; J1815; J2930; J7030; Z7610